=== PATIENT | male | born 1960 | race Caucasian/White ===

== ENCOUNTER → 2018-08-06 | Outpatient (CLI) | payer MEDICARE, MEDICAID | LOC: WOUNDCARE 13:54 | PROVIDERS: ATTEND Surgery | DX: L89.312 Pressure ulcer of right buttock, stage 2 (principal); L22 Diaper dermatitis; N39.42 Incontinence without sensory awareness; G82.50 Quadriplegia, unspecified; G80.9 Cerebral palsy, unspecified | CPT/HCPCS: 99202 ==

== ENCOUNTER → 2018-08-20 | Outpatient (CLI) | payer MEDICARE, MEDICAID | LOC: WOUNDCARE 11:02 | PROVIDERS: ATTEND Surgery | DX: L89.312 Pressure ulcer of right buttock, stage 2 (principal); G82.50 Quadriplegia, unspecified; G80.9 Cerebral palsy, unspecified; L22 Diaper dermatitis; N39.42 Incontinence without sensory awareness | CPT/HCPCS: 99212 ==

== ENCOUNTER → 2018-09-03 | Outpatient (CLI) | payer MEDICARE, MEDICAID | LOC: WOUNDCARE 10:35 | PROVIDERS: ATTEND Surgery | DX: L89.312 Pressure ulcer of right buttock, stage 2 (principal); L22 Diaper dermatitis; N39.42 Incontinence without sensory awareness; G82.50 Quadriplegia, unspecified; G80.9 Cerebral palsy, unspecified | CPT/HCPCS: 99212 ==

== ENCOUNTER → 2018-10-01 | Outpatient (CLI) | payer MEDICARE, MEDICAID | LOC: WOUNDCARE 10:46 | PROVIDERS: ATTEND Surgery | DX: L89.312 Pressure ulcer of right buttock, stage 2 (principal); L22 Diaper dermatitis; N39.42 Incontinence without sensory awareness; G80.9 Cerebral palsy, unspecified | CPT/HCPCS: 99212 ==

== ENCOUNTER 2018-11-17 21:07 | Inpatient (IN) | payer MEDICAID, MEDICARE ==
[~2018-11-17] VITALS: Ht 172.7 cm; Wt 57.6 kg
[2018-11-17] MEDS ORDERED: LACTATED RINGERS 1,000 ML IV ONE ×2 (21:13)
[2018-11-17] MEDS ORDERED: AZITHROMYCIN INJECTION 500 MG in NS (IVPB) 250 ML IV ONE (21:15)
[2018-11-17] MEDS ORDERED: cefTRIAXone FOR IV USE 1,000 MG in WATER (STERILE) FOR INJECTION 10 ML IV ONE (21:15)
--- OUTSIDE RECORDS SUMMARY | 2018-11-17 21:19 | XMS REPORT | Continuity of Care Document ---
Author Author [facility] Organization [facility] Address [address] [place] [address] Phone Unavailable Care Team Providers Care Rolling Machine Operator Automatic Name Role Phone ANITA CLARK MD PCP Insurance Providers Guarantor Tyler Carlin Address [address] [place] [address] Payer Medicare Policy Number [id number] Subscriber's Name GermanTyler Relationship 18 Self/Same As Patient Group Name MEDICARE Effective Date 12 Payer Medicaid [place] [address] Policy Number [id number] Subscriber's Name GermanTyler Relationship 18 Self/Same As Patient Group Number [id number] Advance Directives Directive Response Recorded Date/Time Advance Directives No 11/09/16 8:53am Living Will No 08/27/11 7:58pm Power of Shop Repairer for Healthcare Arin - IFEANYI MAYS-SISTER 12/14/12 8:03am Chief Complaint and Reason for Visit Chief Complaint Abdominal Complaints Reason for Visit Emesis Problems Medical Problem Onset Date Status Choking episode Unknown Acute Transient left leg weakness Unknown Acute Upper respiratory infection Unknown Acute Past Problems Medical Problem Onset Date Status Emesis Unknown Acute Medications Current Home Medications Medication Dose Units Route Directions Days Qty Instructions Start Date Amoxicillin 875 Mg Tablet 875 Mg Oral Two (2) Times A Day 20 Tablets 03/31/17 Aspirin 81 Mg Tab.chew 81 Mg Oral Daily 30 Tab 01/30/17 Atorvastatin Calcium 20 Mg Tablet 20 Mg Oral Daily 30 Tab 10/04/16 Docusate Sodium 100 Mg Tablet 100 Mg Oral Two (2) Times A Day 60 Tab 01/30/17 Fluticasone Propionate 50 Mcg/Actuation [place].susp 50 Mcg Nasal Two (2) Times A Day 16 Gram 03/31/17 Guaifenesin/Dextromethorphan (Mucinex Dm Er 1,200-60 Mg Tab) 1,200 Mg-60 Mg Tbmp.12hr 1 Tab Oral Every Twelve (12) Hours 20 Tab 03/31/17 Ranitidine Hcl 150 Mg Tablet 150 Mg Oral Two (2) Times A Day 60 Tab 10/04/16 Starch (Thick-It) 227 Gm Powder 1 Scoop Oral As Directed 1 Bottle Use as directed by package insert to thicken liquids. 03/14/17 Trazodone Hcl 100 Mg Tablet 100 Mg Oral Bedtime 30 Tab 10/04/16 Past Home Medications Medication Directions Ordered Status Aspirin 81 Mg Tab.chew, 81 Mg Oral Daily 10/31/16 Discontinued Aspirin (Aspirin*) 81 Mg Chw, 81 Mg Oral Daily Discontinued Atorvastatin Calcium (Atorvastatin Calcium*) 20 Mg Tab, 20 Mg Oral Daily 10/31 Discontinued Atorvastatin Calcium (Atorvastatin Calcium*) 20 Mg Tab, 20 Mg Oral Daily Discontinued Azithromycin (Zithromax) 250 Mg Tab, 250 Mg Oral As Directed 03/23/16 Discontinued Docusate Sodium 100 Mg Tablet, 100 Mg Oral Two (2) Times A Day 10/31/16 Discontinued Docusate Sodium 100 Mg Tablet, 100 Mg Oral Two (2) Times A Day 10/04/16 Discontinued Docusate Sodium (Docusate Sodium*) 100 Mg Cap, 100 Mg Oral Two (2) Times A Day Discontinued Lorazepam (Lorazepam*) 1 Mg Tab, 1 Mg Oral Now Dose X 1 07/05/16 Discontinued Neomycin Olsen/Bacitrac Zn/Poly (Triple Antibiotic Ointment) 1 Oin Oin, 1 Oin External 1 To 3 Times A Day as needed for As Needed Discontinued Ranitidine Hcl (Ranitidine Hcl*) 150 Mg Tab, 150 Mg Oral Two (2) Times A Day Discontinued Ranitidine Hcl 150 Mg Tab, 150 Mg Oral Daily Discontinued Starch (Thick-It) 227 Gm Powder, 1 Scoop Oral As Directed 02/07/17 Discontinued Trazodone Hcl (Desyrel*) 100 Mg Tab, 100 Mg Oral Bedtime 08/17/16 Discontinued Trazodone Hcl (Desyrel*) 100 Mg Tab, 100 Mg Oral Bedtime Discontinued Zolpidem Tartrate 10 Mg Tab, 10 Mg Oral Bedtime Discontinued Social History Social History Problem Response Recorded Date/Time Onset Date Status Alcohol use None 03/31/2017 10:54am Not Applicable Not Applicable Recreational drug use None 03/31/2017 10:54am Not Applicable Not Applicable Lives Roommate 11/09/2016 7:49am Not Applicable Not Applicable Smoking Status Start Date Stop Date Never Smoker Hospital Discharge Instructions No hospital discharge instruction information available. Plan of Care Discharge Date 11/09/16 9:11am Disposition Home Condition at Discharge Stable Instructions/Education Provided Acute Nausea and Vomiting (ED) Prescriptions See Medication Section Referrals ANITA CLARK MD Address: [address] [place] [address] Additional Instructions/Education Patient may increase fluid intake, followup with his primary care physician or return to emergency department if he continue vomiting after 2 days. Functional Status No functional status information available. Allergies, Adverse Reactions, Alerts Allergen Type Severity Reaction Status Last Updated tetracycline ([id number]) Allergy Unknown Active 03/31/17 Immunizations Query Response on File Recorded Date/Time Hx Pneumococcal Vaccination Unknown 12/14/12 8:03am Vital Signs Acute Vital Signs Vital Response Date/Time Blood Pressure 105/84 mm Hg 11/09/2016 8:49am Height 5 ft 8 in 11/09/2016 7:48am Weight 150 lb 11/09/2016 7:48am Body Mass Index 22.8 kg/m^2 11/09/2016 7:48am Ambulatory Vital Signs Vital Response Date/Time Height 6 ft 03/31/2017 9:35am Weight 190 lbs 03/31/2017 9:35am Temperature, Temporal 97.1 degrees F 03/31/2017 9:35am Blood Pressure, Sitting, Right Arm 98/70 mm Hg 03/31/2017 9:35am Pulse Rate 81 bpm 03/31/2017 9:35am Respiration Rate 16 bpm 03/31/2017 9:35am Body Surface Area 2.10 m2 03/31/2017 9:35am Body Mass Index 25.8 kg/m2 03/31/2017 9:35am Pulse Oximetry Pulse Oximetry 03/31/2017 9:35am Results Laboratory Results Test Name Result Units Flags Reference Collection Date/Time Result Date/ Time Comments Total Cholesterol 90 mg/dL < 200 10/20/2016 8:10/20/2016 9:19am Triglycerides Level 87 mg/dL <150 10/20/2016 8:10/20/2016 9:19am HDL Cholesterol 27 mg/dL L >60 10/20/2016 8:10/20/2016 9:19am LDL Cholesterol 46 mg/dL <100 10/20/2016 8:10/20/2016 9:19am Very Low Density Lipoproteins 17.4 10/20/2016 8:10/20/2016 9: 19am Thyroid Stimulating Hormone (TSH) 2.11 uUI/ml 0.35-4.94 10/20/2016 8: 10/20/2016 9:30am White Blood Count 11.9 K/uL H 4.4-10.8 11/09/2016 8:11/09/2016 8: 14am Red Blood Count 5.58 mil/uL 4.0-6.2 11/09/2016 8:11/09/2016 8: 14am Hemoglobin 16.0 g/dL 11.8-18.0 11/09/2016 8:11/09/2016 8:14am Hematocrit 49.1 % 34.0-54.0 11/09/2016 8:11/09/2016 8:14am Mean Corpuscular Volume 88.0 fL 83.2-94.4 11/09/2016 8:11/09/2016 8:14am Mean Corpuscular Hemoglobin 28.7 pg 26.2-30.6 11/09/2016 8:2016 8:14am Mean Corpuscular Hemoglobin Concent 32.6 g/dL 29.6-33.2 11/09/2016 8: 11/09/2016 8:14am Red Cell Distribution Width 13.2 % 11.6-16.5 11/09/2016 8:2016 8:14am Platelet Count 180 K/ul 150-450 11/09/2016 8:11/09/2016 8:14am Mean Platelet Volume 10.4 fL 6.9-11.0 11/09/2016 8:0811/09/2016 8: 14am Neutrophils (%) (Auto) 84.6 % H 37.00-80.00 11/09/2016 8:082016 8:14am Lymphocytes (%) (Auto) 9.3 % L 10.00-50.00 11/09/2016 8:0811/09/2016 8:14am Monocytes (%) (Auto) 4.6 % 0.0-12.00 11/09/2016 8:0811/09/2016 8: 14am Eosinophils (%) (Auto) 0.7 % 0.0-7.00 11/09/2016 8:0811/09/2016 8: 14am Basophils (%) (Auto) 0.5 % 0.0-1.7 11/09/2016 8:0811/09/2016 8:14am Neutrophils # (Auto) 10.0 K/uL H 2.0-6.9 11/09/2016 8:0811/09/2016 8: 14am Lymphocytes # (Auto) 1.1 K/uL 0.6-3.4 11/09/2016 8:08am 11/09/2016 8: 14am Monocytes # (Auto) 0.6 K/uL 0.0-0.9 11/09/2016 8:0811/09/2016 8: 14am Eosinophils # (Auto) 0.1 K/uL 0.0-0.7 11/09/2016 8:0811/09/2016 8: 14am Basophils # (Auto) 0.1 K/uL 0.0-0.2 11/09/2016 8:0811/09/2016 8: 14am Sodium Level 143 mEq/L 135-145 11/09/2016 8:0811/09/2016 8:31am Potassium Level 4.1 mEq/L 3.5-5.1 11/09/2016 8:0811/09/2016 8:31am Chloride Level 108 mEq/L 98-113 11/09/2016 8:0811/09/2016 8:31am Carbon Dioxide Level 26 mEq/L 20-31 11/09/2016 8:0811/09/2016 8: 31am Anion Gap 9 mEq/L 7-16 11/09/2016 8:0811/09/2016 8:31am Blood Urea Nitrogen 17 mg/dL 8.0-26.0 11/09/2016 8:08am 11/09/2016 8: 31am Random Glucose 101 mg/dL 70-115 11/09/2016 8:08am 11/09/2016 8:31am Creatinine 1.1 mg/dl 0.72-1.25 11/09/2016 8:08am 11/09/2016 8:31am Estimated GFR (Non- > 60 11/09/2016 8:08am 2016 8:31am NORMAL eGFR: >=60 ml/min/1.73 m2 KIDNEY DISEASE: < 60 ml/min/1.73 m2 KIDNEY FAILURE: < 15 ml/min/1.73 m2 SOURCE: NKDEP (National Kidney Disease Education Program).NIH.GOV Calcium Level 9.4 mg/dL 8.6-10.6 11/09/2016 8:08am 11/09/2016 8:31am Aspartate Amino Transf (AST/SGOT) 26 IU/L 5-34 11/09/2016 8:08am 2016 8:31am Alanine Aminotransferase (ALT/SGPT) 21 IU/L 6-55 11/09/2016 8:08am 8:31am Alkaline Phosphatase 89 IU/L 40-150 11/09/2016 8:08am 11/09/2016 8: 31am Total Bilirubin 0.6 mg/dL 0.2-1.2 11/09/2016 8:08am 11/09/2016 8:31am Total Protein 7.2 gm/dL 6.0-8.3 11/09/2016 8:08am 11/09/2016 8:31am Albumin 4.3 gm/dL 3.4-4.8 11/09/2016 8:08am 11/09/2016 8:31am Lipase 25 U/L 8-78 11/09/2016 8:08am 11/09/2016 8:31am Procedures Procedure Status Date Provider(s) EMERGENCY DEPT VISIT Completed 04/26/16 CT HEAD/BRAIN W/O DYE Completed 04/26/16 COMPLETE CBC W/AUTO DIFF WBC Completed 04/26/16 ROUTINE VENIPUNCTURE Completed 04/26/16 COMPREHEN METABOLIC PANEL Completed 04/26/16 CINE/VID X-RAY THROAT/ESOPH Completed 05/24/16 MOTION FLUOROSCOPY/SWALLOW Completed 05/24/16 Completed 05/24/16 Completed 05/24/16 Completed 05/24/16 COMPLETE CBC W/AUTO DIFF WBC Completed 10/20/16 ROUTINE VENIPUNCTURE Completed 10/20/16 LIPID PANEL Completed 10/20/16 ASSAY THYROID STIM HORMONE Completed 10/20/16 COMPREHEN METABOLIC PANEL Completed 10/20/16 EMERGENCY DEPT VISIT Completed 11/09/16 ASSAY OF LIPASE Completed 11/09/16 COMPLETE CBC W/AUTO DIFF WBC Completed 11/09/16 ROUTINE VENIPUNCTURE Completed 11/09/16 COMPREHEN METABOLIC PANEL Completed 11/09/16 CT Head WO contrast Active 04/26/16 RAY FLEMING Modified barium swallow Active 05/24/16 WAQAS HOOD APRN Technologists Notes Completed 05/24/16 WAQAS HOOD APRN Swallow Goal 1 - <20% Completed 05/24/16 WAQAS HOOD APRN Swallow Current 20 - <40% Completed 05/24/16 WAQAS HOOD APRN Swallow Discharge 20 - <40% Completed 05/24/16 WAQAS HOOD APRN Encounters Encounter Location Arrival/Admit Date Discharge/Depart Date Attending Provider Office Visit [facility] [address] [facility] [place] 03/31/17 9:45am ANITA CLARK MD Registered Practice [facility] 03/31/17 9:45am ANITA CLARK MD Office Visit [facility] [address] [place] 02/09/17 8:00am BROOKE DUMONT APRN Departed Emergency Room [facility] 11/09/16 7:45am 11/09/16 9: 11am RAY FLEMING Registered Referred [facility] 10/20/16 7:56am BROOKE DUMONT PROCESSING MGR Office Visit [facility] [address] [place] 10/04/16 9:00am BROOKE DUMONT APRN Registered Referred [facility] 05/24/16 9:16am WAQAS HOOD APRN Office Visit Family [facility] [address] - [place] 05/05/16 9:45am WAQAS HOOD APRN Departed Emergency Room [facility] 04/26/16 10:49am 04/26/16 12:57pm SHAFEI, MOHEDINE Recent Diagnosis Congestion of respiratory tract Acute streptococcal pharyngitis
--- OUTSIDE RECORDS SUMMARY | 2018-11-17 21:19 | XMS REPORT | Continuity of Care Document ---
Author Author [facility] Organization [facility] Address [address] [place] [address] Phone Unavailable Care Team Providers Care Acute Coordinator Name Role Phone ANITA CLARK MD PCP Insurance Providers Guarantor Tyler Carlin Address [address] [place] [address] Payer Medicare Policy Number [id number] Subscriber's Name Tyler Carlin Relationship 18 Self/Same As Patient Group Name MEDICARE Effective Date 12 Payer Medicaid [place] [id number] Policy Number [id number] Subscriber's Name Tyler Carlin Relationship 18 Self/Same As Patient Group Number [id number] Advance Directives Directive Response Recorded Date/Time Advance Directives No 11/09/16 8:53am Living Will No 08/27/11 7:58pm Power of Patient Admitting Clerk for Healthcare Arin - IFEANYI MAYS-SISTER 12/14/12 [...] Route Directions Days Qty Instructions Start Date Aspirin 81 Mg Tab.chew 81 Mg Oral Daily 30 Tab 10/31/16 Atorvastatin Calcium 20 Mg Tablet 20 Mg Oral Daily 30 Tab 10/04/16 Docusate Sodium 100 Mg Tablet 100 Mg Oral Two (2) Times A Day 60 Tab 10/31/16 Ranitidine Hcl 150 Mg Tablet 150 Mg Oral Two (2) Times A Day 60 Tab 10/04/16 Trazodone Hcl 100 Mg Tablet 100 Mg Oral Bedtime 30 Tab 10/04/16 Past Home Medications Medication Directions Ordered Status Aspirin (Aspirin*) 81 Mg Chw, 81 Mg [...] Mg Tab, 150 Mg Oral Daily Discontinued Trazodone Hcl (Desyrel*) 100 Mg Tab, 100 Mg Oral Bedtime 08/17/16 Discontinued Trazodone Hcl (Desyrel*) 100 Mg Tab, 100 Mg Oral Bedtime Discontinued Zolpidem Tartrate 10 Mg Tab, 10 Mg Oral Bedtime Discontinued Social History Social History Problem Response Recorded Date/Time Onset Date Status Alcohol use None 11/09/2016 7:49am Not Applicable Not Applicable Recreational drug use None 11/09/2016 7:49am Not Applicable Not Applicable Lives Roommate 11/09/2016 7:49am Not Applicable Not Applicable Smoking Status Start Date Stop Date Never Smoker Hospital Discharge Instructions No hospital discharge instruction information available. Plan of Care Discharge Date 11/09/16 9:11am Disposition Home Condition at Discharge Stable Instructions/Education Provided Acute Nausea and Vomiting (ED) Prescriptions See Medication Section Referrals ANITA CLARK MD Address: [address] [place] [phone] Additional Instructions/Education Patient may increase fluid intake, followup with his primary care physician or return to emergency department if he continue vomiting after 2 days. Functional Status No functional status information available. Allergies, Adverse Reactions, Alerts Allergen Type Severity Reaction Status Last Updated tetracycline ([id number]) Allergy Unknown Active 11/09/16 Immunizations Query Response on File Recorded Date/Time Hx Pneumococcal Vaccination Unknown 12/14/12 8:03am Vital Signs Acute Vital Signs Vital Response Date/Time Blood Pressure 105/84 mm Hg 11/09/2016 8:49am Height 5 ft 8 in 11/09/2016 7:48am Weight 150 lb 11/09/2016 7:48am Body Mass Index 22.8 kg/m^2 11/09/2016 7:48am Ambulatory Vital Signs Vital Response Date/Time Temperature, Temporal 97.6 degrees F 10/04/2016 9:28am Blood Pressure, Sitting, Right Arm 128/82 mm Hg 10/04/2016 9:28am Pulse Rate 84 bpm 10/04/2016 9:28am Respiration Rate 16 bpm 10/04/2016 9:28am Pulse Oximetry Pulse Oximetry 10/04/2016 9:28am Results Laboratory Results Test Name Result Units Flags Reference Collection Date/Time Result Date/ Time Comments Total Cholesterol 90 mg/dL < 200 10/20/2016 8:10am 10/20/2016 9:19am Triglycerides Level 87 mg/dL <150 10/20/2016 8:10a10/20/2016 9:19am HDL Cholesterol 27 mg/dL L >60 10/20/2016 8:10a10/20/2016 9:19am LDL Cholesterol 46 mg/dL <100 10/20/2016 8:10a10/20/2016 9:19am Very Low Density Lipoproteins 17.4 10/20/2016 8:10a10/20/2016 9: 19am Thyroid Stimulating Hormone (TSH) 2.11 uUI/ml 0.35-4.94 10/20/2016 8: 10a10/20/2016 9:30am White Blood Count 11.9 K/uL H 4.4-10.8 11/09/2016 8:08am 11/09/2016 8: 14am Red Blood Count 5.58 mil/uL 4.0-6.2 11/09/2016 8:08am 11/09/2016 8: 14am Hemoglobin 16.0 g/dL 11.8-18.0 11/09/2016 8:08am 11/09/2016 8:14am Hematocrit 49.1 % 34.0-54.0 11/09/2016 8:08am 11/09/2016 8:14am Mean Corpuscular Volume 88.0 fL 83.2-94.4 11/09/2016 8:0811/09/2016 8:14am Mean Corpuscular Hemoglobin 28.7 pg 26.2-30.6 11/09/2016 8:082016 8:14am Mean Corpuscular Hemoglobin Concent 32.6 g/dL 29.6-33.2 11/09/2016 8: 0811/09/2016 8:14am Red Cell Distribution Width 13.2 % 11.6-16.5 11/09/2016 8:082016 8:14am Platelet Count 180 K/ul 150-450 11/09/2016 8:0811/09/2016 8:14am Mean Platelet Volume 10.4 fL 6.9-11.0 11/09/2016 8:08am 11/09/2016 8: 14am Neutrophils (%) (Auto) 84.6 % H 37.00-80.00 11/09/2016 8:08am 2016 8:14am Lymphocytes (%) (Auto) 9.3 % L 10.00-50.00 11/09/2016 8:08am 11/09/2016 8:14am Monocytes (%) (Auto) 4.6 % 0.0-12.00 11/09/2016 8:0811/09/2016 8: 14am Eosinophils (%) (Auto) 0.7 % 0.0-7.00 11/09/2016 8:08am 11/09/2016 8: 14am Basophils (%) (Auto) 0.5 % 0.0-1.7 11/09/2016 8:08am 11/09/2016 8:14am Neutrophils # (Auto) 10.0 K/uL H 2.0-6.9 11/09/2016 8:08am 11/09/2016 8: 14am Lymphocytes # (Auto) 1.1 K/uL 0.6-3.4 11/09/2016 8:08am 11/09/2016 8: 14am Monocytes # (Auto) 0.6 K/uL 0.0-0.9 11/09/2016 8:08am 11/09/2016 8: 14am Eosinophils # (Auto) 0.1 K/uL 0.0-0.7 11/09/2016 8:08am 11/09/2016 8: 14am Basophils # (Auto) 0.1 K/uL 0.0-0.2 11/09/2016 8:08am 11/09/2016 8: 14am Sodium Level 143 mEq/L 135-145 11/09/2016 8:08am 11/09/2016 8:31am Potassium Level 4.1 mEq/L 3.5-5.1 11/09/2016 8:08am 11/09/2016 8:31am Chloride Level 108 mEq/L 98-113 11/09/2016 8:08am 11/09/2016 8:31am Carbon Dioxide Level 26 mEq/L 20-31 11/09/2016 8:08am 11/09/2016 8: 31am Anion Gap 9 mEq/L 7-16 11/09/2016 8:08am 11/09/2016 8:31am Blood Urea Nitrogen 17 mg/dL 8.0-26.0 11/09/2016 8:08am 11/09/2016 8: 31am Random Glucose 101 mg/dL 70-115 11/09/2016 8:08am 11/09/2016 8:31am Creatinine 1.1 mg/dl 0.72-1.25 11/09/2016 8:08am 11/09/2016 8:31am Estimated GFR (Non- > 60 11/09/2016 8:082016 8:31am NORMAL eGFR: >=60 ml/min/1.73 m2 KIDNEY [...] Status Date Provider(s) EMERGENCY DEPT VISIT Completed 11/30/15 CHEST X-RAY 1 VIEW FRONTAL Completed 11/30/15 AIRWAY INHALATION TREATMENT Completed 11/30/15 EVALUATE PT USE OF INHALER Completed 11/30/15 Completed 11/30/15 EMERGENCY DEPT VISIT Completed 03/23/16 COMPLETE CBC W/AUTO DIFF WBC Completed 03/23/16 ROUTINE VENIPUNCTURE Completed 03/23/16 COMPREHEN METABOLIC PANEL Completed 03/23/16 INFLUENZA A/B AG IA Completed 03/23/16 EMERGENCY DEPT VISIT Completed 04/26/16 CT HEAD/BRAIN [...] Completed 10/20/16 COMPREHEN METABOLIC PANEL Completed 10/20/16 Initial aerosol treatment Active 11/30/15 JOHN ISLAS MD XR portable chest, 1 view Active 11/30/15 JOHN ISLAS MD Aerosol Tx Demo And Eval Completed 11/30/[address] head wo contrast Active 04/26/16 RAY FLEMING Modified barium swallow Active 05/24/16 WAQAS HOOD APRN Technologists Notes Completed 05/24/16 WAQAS HOOD APRN Swallow Goal 1 - <20% Completed 05/24/16 WAQAS HOOD APRN Swallow Current 20 - <40% Completed 05/24/16 WAQAS HOOD APRN Swallow Discharge 20 - <40% Completed 05/24/16 WAQAS HOOD APRN Encounters Encounter Location Arrival/Admit Date Discharge/Depart Date Attending Provider Departed Emergency Room [facility] 11/09/16 7:45am 11/09/16 9: 11am RAY FLEMING Registered Referred [facility] 10/20/16 7:56am BROOKE DUMONT APRN Office Visit Family [facility] [address] [place] 10/04/16 9:00am BROOKE DUMONT APRN Registered Practice [facility] 10/04/16 9:00am BROOKE DUMONT APRN Registered Referred [facility] 05/24/16 9:16am WAQAS HOOD APRN Office Visit [facility] [address] - [place] 05/05/16 9:45am WAQAS HOOD APRN Departed Emergency Room [facility] 04/26/16 10:49am 04/26/16 12:57pm RAY FLEMING Departed Emergency Room [facility] 03/23/16 11:12am 03/23/16 12:51pm RAY FLEMING Departed Emergency Room [facility] 11/30/15 11:29am 11/30/15 2 :10pm JOHN ISLAS MD Recent Diagnosis
--- OUTSIDE RECORDS SUMMARY | 2018-11-17 21:19 | XMS REPORT | Continuity of Care Document ---
Author Author [facility] Organization [facility] Address [address] [place] [id number] Phone Unavailable Care Team Providers Care Studio Camera Operator Name Role Phone ANITA CLARK MD PCP Insurance Providers Guarantor Tyler Carlin Address [address] [place] [address] Payer Medicare Policy Number [id number] Subscriber's Name GermanTyler Relationship 18 Self/Same As Patient Group Name MEDICARE Effective Date 12 Payer Medicaid [place] [address] Policy Number [id number] Subscriber's Name GermanLionelTyler Relationship 18 Self/Same As Patient Group Number [id number] Advance Directives Directive Response Recorded Date/Time Advance Directives No 11/09/16 8:53am Living Will No 08/27/11 7:58pm Power of Assistant Director Of Nursing for Healthcare Arin - IFEANYI MAYS-SISTER 12/14/12 [...] (2) Times A Day 60 Tab 01/30/17 Ranitidine Hcl 150 Mg Tablet 150 Mg Oral Two (2) Times A Day 60 Tab 10/04/16 Starch (Thick-It) 227 Gm Powder 1 Scoop Oral As Directed 1 Bottle Use as directed by package insert to thicken liquids. 02/07/17 Trazodone Hcl 100 Mg Tablet 100 Mg [...] Date/Time Onset Date Status Alcohol use None 02/10/2017 7:58am Not Applicable Not Applicable Recreational drug use None 02/10/2017 7:58am Not Applicable Not Applicable Lives Roommate 11/09/2016 7:49am Not Applicable Not Applicable Smoking Status Start Date Stop Date Never Smoker Hospital Discharge Instructions No hospital discharge instruction information available. Plan of Care Discharge Date 11/09/16 9:11am Disposition Home Condition at Discharge Stable Instructions/Education Provided Acute Nausea and Vomiting (ED) Prescriptions See Medication Section Referrals ANITA CLARK MD Address: [address] [place] [id number] Additional Instructions/Education Patient may increase fluid intake, followup with his primary care physician or return to emergency department if he continue vomiting after 2 days. Functional Status No functional status information available. Allergies, Adverse Reactions, Alerts Allergen Type Severity Reaction Status Last Updated tetracycline ([id number]) Allergy Unknown Active 02/09/17 Immunizations Query Response on File Recorded Date/Time Hx Pneumococcal Vaccination Unknown 12/14/12 8:03am Vital Signs Acute Vital Signs Vital Response Date/Time Blood Pressure 105/84 mm Hg 11/09/2016 8:49am Height 5 ft 8 in 11/09/2016 7:48am Weight 150 lb 11/09/2016 7:48am Body Mass Index 22.8 kg/m^2 11/09/2016 7:48am Ambulatory Vital Signs Vital Response Date/Time Weight 159 lbs 2 oz 02/09/2017 8:38am Temperature, Temporal 97.6 degrees F 02/09/2017 8:38am Blood Pressure, Sitting, Left Arm 98/62 mm Hg 02/09/2017 8:38am Pulse Rate 80 bpm 02/09/2017 8:38am Pulse Oximetry Pulse Oximetry 02/09/2017 8:38am Results Laboratory Results Test Name Result Units Flags Reference Collection Date/Time Result Date/ Time Comments Total Cholesterol 90 mg/dL < 200 10/20/2016 8:10am 10/20/2016 9:19am Triglycerides Level 87 mg/dL <150 10/20/2016 8:10am 10/20/2016 9:19am HDL Cholesterol 27 mg/dL L >60 10/20/2016 8:10am 10/20/2016 9:19am LDL Cholesterol 46 mg/dL <100 10/20/2016 8:10am 10/20/2016 9:19am Very Low Density Lipoproteins 17.4 10/20/2016 8:10am 10/20/2016 9: 19am Thyroid Stimulating Hormone (TSH) 2.11 uUI/ml 0.35-4.94 10/20/2016 8: 10am 10/20/2016 9:30am White Blood Count 11.9 K/uL H 4.4-10.8 11/09/2016 8:0811/09/2016 8: 14am Red Blood Count 5.58 mil/uL 4.0-6.2 11/09/2016 8:11/09/2016 8: 14am Hemoglobin 16.0 g/dL 11.8-18.0 11/09/2016 8:0811/09/2016 8:14am Hematocrit 49.1 % 34.0-54.0 11/09/2016 8:11/09/2016 8:14am Mean Corpuscular Volume 88.0 fL 83.2-94.4 11/09/2016 8:0811/09/2016 8:14am Mean Corpuscular Hemoglobin 28.7 pg 26.2-30.6 11/09/2016 8:082016 8:14am Mean Corpuscular Hemoglobin Concent 32.6 g/dL 29.6-33.2 11/09/2016 8: 11/09/2016 8:14am Red Cell Distribution Width 13.2 % 11.6-16.5 11/09/2016 8:2016 8:14am Platelet Count 180 K/ul 150-450 11/09/2016 8:11/09/2016 8:14am Mean Platelet Volume 10.4 fL 6.9-11.0 11/09/2016 8:11/09/2016 8: 14am Neutrophils (%) (Auto) 84.6 % H 37.00-80.00 11/09/2016 8:2016 8:14am Lymphocytes (%) (Auto) 9.3 % L 10.00-50.00 11/09/2016 8:11/09/2016 8:14am Monocytes (%) (Auto) 4.6 % 0.0-12.00 11/09/2016 8:11/09/2016 8: 14am Eosinophils (%) (Auto) 0.7 % 0.0-7.00 11/09/2016 8:11/09/2016 8: 14am Basophils (%) (Auto) 0.5 % 0.0-1.7 11/09/2016 8:11/09/2016 8:14am Neutrophils # (Auto) 10.0 K/uL H [...] Status Date Provider(s) EMERGENCY DEPT VISIT Completed 03/23/16 COMPLETE CBC [...] - Short 02/09/17 8:00am BROOKE DUMONT APRN Registered Practice [facility] 02/09/17 8:00am BROOKE DUMONT APRN Departed Emergency Room [facility] 11/09/16 7:45am 11/09/16 9: 11am RAY FLEMING Registered Referred [facility] 10/20/16 7:56am BROOKE DUMONT APRN Office Visit Family [facility] [address] - [place] 10/04/16 9:00am BROOKE DUMONT APRN Registered Referred [facility] 05/24/16 9:16am WAQAS HOOD APRN Office Visit Family Med [address] - [place] 05/05/16 9:45am WAQAS HOOD APRN Departed Emergency Room [facility] 04/26/16 10:49am 04/26/16 12:57pm RAY FLEMING Departed Emergency Room [facility] 03/23/16 11:12am 03/23/16 12:51pm RAY FLEMING Recent Diagnosis Well adult exam
--- OUTSIDE RECORDS SUMMARY | 2018-11-17 21:20 | XMS REPORT | Continuity of Care Document ---
Author Author [facility] Organization [facility] Address [address] [place] [address] Care Team Providers Care Fishing Tool Technician Oil Well Name Role Phone BROOKE DUMONT APRN PCP Insurance Providers Guarantor Tyler Porter Address [address] [place] [address] Payer Medicare Policy Number [id number] Subscriber's Name Tyler Porter Relationship 18 Self/Same As Patient Group Name MEDICARE Effective Date 12 Payer Medicaid [place] [address] Policy Number [id number] Subscriber's Name Tyler Porter Relationship 18 Self/Same As Patient Group Number [id number] Advance Directives Directive Response Recorded Date/Time Advance Directives No 11/09/16 8:53am Living Will No 08/27/11 7:58pm Power of Motor Vehicle Assembly Supervisor for Healthcare Arin - IFEANYI MAYS-SISTER 12/14/12 8:03am Chief Complaint and Reason for Visit Chief Complaint Fall Reason for Visit Recurrent falls Fall Problems Medical Problem Onset Date Status Abrasion head Unknown Acute Choking episode Unknown Acute Decubitus ulcer of left foot, stage 2 Unknown Chronic Head injury due to trauma Unknown Acute Pressure ulcer of toe of left foot, stage 1 Unknown Acute Transient left leg weakness Unknown Acute Ulcer of toe of left foot Unknown Upper respiratory infection Unknown Acute Past Problems Medical Problem Onset Date Status Emesis Unknown Acute Fall Unknown Acute Recurrent falls Unknown Acute Medications Current Home Medications Medication Dose Units Route Directions Days Qty Instructions Start Date Aspirin 81 Mg Tab.chew 81 Mg Oral Daily 30 Tab 08/02/17 Atorvastatin Calcium 20 Mg Tablet 20 Mg Oral Daily 30 Tab 09/01/17 Docusate Sodium 100 Mg Tablet 100 Mg Oral Two (2) Times A Day 60 Tab 07/31/17 Ranitidine Hcl 150 Mg Tablet 150 Mg Oral Two (2) Times A Day 60 Tab 09/01/17 Starch (Thick-It) 227 Gm Powder 1 Scoop Oral As Directed 1 Bottle Use as directed by package insert to thicken liquids. 09/28/17 Trazodone Hcl 100 Mg Tablet 100 Mg Oral Bedtime 30 Tab 09/01/17 Past Home Medications Medication Directions Ordered Status Amoxicillin 875 Mg Tablet, 875 Mg Oral Two (2) Times A Day 03/31/17 Discontinued Aspirin 81 Mg Tab.chew, 81 Mg Oral Daily 08/01/17 Discontinued Aspirin 81 Mg Tab.chew, 81 Mg Oral Daily 05/01/17 Discontinued Aspirin 81 Mg Tab.chew, 81 Mg Oral Daily 01/30/17 Discontinued Aspirin 81 Mg Tab.chew, 81 Mg Oral Daily 10/31/16 Discontinued Aspirin (Aspirin*) 81 Mg Chw, 81 Mg Oral Daily Discontinued Atorvastatin Calcium 20 Mg Tablet, 20 Mg Oral Daily 10/04/16 Discontinued Atorvastatin Calcium (Atorvastatin Calcium*) 20 Mg Tab, 20 Mg Oral Daily 10/31 Discontinued Atorvastatin Calcium (Atorvastatin Calcium*) 20 Mg Tab, 20 Mg Oral Daily Discontinued Azithromycin (Zithromax) 250 Mg Tab, 250 Mg Oral As Directed 03/23/16 Discontinued Docusate Sodium 100 Mg Tablet, 100 Mg Oral Two (2) Times A Day 05/01/17 Discontinued Docusate Sodium 100 Mg Tablet, 100 Mg Oral Two (2) Times A Day 01/30/17 Discontinued Docusate Sodium 100 Mg Tablet, 100 Mg Oral Two (2) Times A Day 10/31/16 Discontinued Docusate Sodium 100 Mg Tablet, 100 Mg Oral Two (2) Times A Day 10/04/16 Discontinued Docusate Sodium (Docusate Sodium*) 100 Mg Cap, 100 Mg Oral Two (2) Times A Day Discontinued Fluticasone Propionate 50 Mcg/Actuation [place].susp, 50 Mcg Nasal Two (2) Times A Day 03/31/17 Discontinued Guaifenesin/Dextromethorphan (Mucinex Dm Er 1,200-60 Mg Tab) 1,200 Mg-60 Mg Tbmp.12hr, 1 Tab Oral Every Twelve (12) Hours 03/31/17 Discontinued Lorazepam (Lorazepam*) 1 Mg Tab, 1 Mg Oral Now Dose X 1 07/05/16 Discontinued Neomycin Olsen/Bacitrac Zn/Poly (Triple Antibiotic Ointment) 1 Oin Oin, 1 Oin External 1 To 3 Times A Day as needed for As Needed Discontinued Ranitidine Hcl 150 Mg Tablet, 150 Mg Oral Two (2) Times A Day 10/04/16 Discontinued Ranitidine Hcl (Ranitidine Hcl*) 150 Mg Tab, 150 Mg Oral Two (2) Times A Day Discontinued Ranitidine Hcl 150 Mg Tab, 150 Mg Oral Daily Discontinued Starch (Thick-It) 227 Gm Powder, 1 Scoop Oral As Directed 09/01/17 Discontinued Starch (Thick-It) 227 Gm Powder, 1 Scoop Oral As Directed 04/19/17 Discontinued Starch (Thick-It) 227 Gm Powder, 1 Scoop Oral As Directed 03/14/17 Discontinued Starch (Thick-It) 227 Gm Powder, 1 Scoop Oral As Directed 02/07/17 Discontinued Trazodone Hcl 100 Mg Tablet, 100 Mg Oral Bedtime 10/04/16 Discontinued Trazodone Hcl (Desyrel*) 100 Mg Tab, 100 Mg Oral Bedtime 08/17/16 Discontinued Trazodone Hcl (Desyrel*) 100 Mg Tab, 100 Mg Oral Bedtime Discontinued Zolpidem Tartrate 10 Mg Tab, 10 Mg Oral Bedtime Discontinued Social History Social History Problem Response Recorded Date/Time Onset Date Status Alcohol use None 10/09/2017 3:47pm Not Applicable Not Applicable Recreational drug use None 10/09/2017 3:47pm Not Applicable Not Applicable Lives [facility] 10/09/2017 3:47pm Not Applicable Not Applicable Smoking Status Start Date Stop Date Never Smoker Hospital Discharge Instructions No hospital discharge instruction information available. Plan of Care Discharge Date 10/09/17 6:06pm Disposition Home Condition at Discharge Unchanged Instructions/Education Provided Fall Prevention for Older Adults (ED) Prescriptions See Medication Section Referrals BROOKE DUMONT APRN Address: [facility] [address] [address] Additional Instructions/Education Followup with his primary care physician if symptom worsen Functional Status No functional status information available. Allergies, Adverse Reactions, Alerts Allergen Type Severity Reaction Status Last Updated tetracycline ([id number]) Allergy Unknown Active 10/09/17 Immunizations Query Response on File Recorded Date/Time Hx Pneumococcal Vaccination Unknown 12/14/12 8:03am Vital Signs Acute Vital Signs Vital Response Date/Time Blood Pressure 109/68 mm Hg 10/09/2017 5:16pm Height 5 ft 9 in 10/09/2017 3:43pm Weight 155 lb 10/09/2017 3:43pm Body Mass Index 22.9 kg/m^2 10/09/2017 3:43pm Ambulatory Vital Signs Vital Response Date/Time Height 5 ft 11 in 08/07/2017 1:59pm Weight 189 lbs 9.530 oz 08/07/2017 1:59pm Temperature, Oral 98.3 degrees F 08/07/2017 1:59pm Blood Pressure, Sitting, Left Arm 98/62 mm Hg 08/07/2017 1:59pm Pulse Rate 89 bpm 08/07/2017 1:59pm Respiration Rate 16 bpm 08/07/2017 1:59pm Body Surface Area 2.09 m2 08/07/2017 1:59pm Body Mass Index 26.4 kg/m2 08/07/2017 1:59pm Pulse Oximetry Pulse Oximetry 08/07/2017 1:59pm Results Laboratory Results Test Name Result Units [...] Red Blood Count 5.58 mil/uL 4.0-6.2 11/09/2016 8:0811/09/2016 8: 14am Hemoglobin 16.0 g/dL 11.8-18.0 11/09/2016 8:0811/09/2016 8:14am Hematocrit 49.1 % 34.0-54.0 11/09/2016 8:08am 11/09/2016 8:14am Mean Corpuscular Volume 88.0 fL 83.2-94.4 11/09/2016 8:0811/09/2016 8:14am Mean Corpuscular Hemoglobin 28.7 pg 26.2-30.6 11/09/2016 8:082016 8:14am Mean Corpuscular Hemoglobin Concent 32.6 g/dL 29.6-33.2 11/09/2016 8: 0811/09/2016 8:14am Red Cell Distribution Width 13.2 % 11.6-16.5 11/09/2016 8:08am 2016 8:14am Platelet Count 180 K/ul 150-450 11/09/2016 8:08am 11/09/2016 8:14am Mean Platelet Volume 10.4 fL 6.9-11.0 11/09/2016 8:08am 11/09/2016 8: 14am Neutrophils (%) (Auto) 84.6 % H 37.00-80.00 11/09/2016 8:082016 8:14am Lymphocytes (%) (Auto) 9.3 % L 10.00-50.00 11/09/2016 8:am 11/09/2016 8:14am Monocytes (%) (Auto) 4.6 % 0.0-12.00 11/09/2016 8:08am 11/09/2016 8: 14am Eosinophils (%) (Auto) 0.7 % [...] Blood Urea Nitrogen 17 mg/dL 8.0-26.0 11/09/2016 8:0811/09/2016 8: 31am Random Glucose 101 mg/dL 70-115 11/09/2016 8:08am 11/09/2016 8:31am Creatinine 1.1 mg/dl 0.72-1.25 11/09/2016 8:0811/09/2016 8:31am Estimated GFR (Non- > 60 11/09/2016 8:082016 8:31am NORMAL eGFR: >=60 ml/min/1.73 m2 KIDNEY DISEASE: < 60 ml/min/1.73 m2 KIDNEY FAILURE: < 15 ml/min/1.73 m2 SOURCE: NKDEP (National Kidney Disease Education Program).NIH.GOV Calcium Level 9.4 mg/dL 8.6-10.6 11/09/2016 8:0811/09/2016 8:31am Aspartate Amino Transf (AST/SGOT) 26 IU/L [...] 11/09/2016 8:31am Procedures Procedure Status Date Provider(s) COMPLETE CBC W/AUTO DIFF WBC Completed 10/20/16 ROUTINE VENIPUNCTURE Completed 10/20/16 LIPID PANEL Completed 10/20/16 ASSAY THYROID STIM HORMONE Completed 10/20/16 COMPREHEN METABOLIC PANEL Completed 10/20/16 EMERGENCY DEPT VISIT Completed 11/09/16 ASSAY OF LIPASE Completed 11/09/16 COMPLETE CBC W/AUTO DIFF WBC Completed 11/09/16 ROUTINE VENIPUNCTURE Completed 11/09/16 COMPREHEN METABOLIC PANEL Completed 11/09/16 RMVL DEVITAL TIS 20 CM/< Completed 09/01/17 BROOKE DUMONT ASSEMBLY ASSOCIATE EXCISION OF LEFT FOOT SKIN, EXTERNAL APPROACH Completed 09/01/[address]KE [address]UMONT ASSEMBLY ASSOCIATE CT HEAD/BRAIN W/O DYE Completed 09/04/17 EMERGENCY DEPT VISIT Completed 09/04/17 CT NECK SPINE W/O DYE Completed 09/04/17 CT Head WO contrast Completed 09/04/17 MICA LEDEZMA MD Computed tomography of cervical spine without contrast Completed 09/04/17 MICA LEDEZMA MD Ultrasound of artery of left lower extremity Completed 09/29/17 BROOKE DUMONT ASSEMBLY ASSOCIATE CT Head WO contrast Active 10/09/17 RAY FLEMING Encounters Encounter Location Arrival/Admit Date Discharge/Depart Date Attending Provider Departed Emergency Room [facility] 10/09/17 3:40pm 10/09/17 6: 06pm RAY FLEMING Registered Referred [facility] 09/29/17 11:04am MARS OCAMPO MD Registered Referred [facility] 09/29/17 9:38am BROOKE DUMONT APRN Registered Referred [facility] 09/27/17 8:22am BROOKE DUMONT APRN Registered Referred [facility] 09/22/17 8:47am BROOKE DUMONT APRN Registered Referred [facility] 09/15/17 8:56am BROOKE DUMONT APRN Departed Emergency Room [facility] 09/04/17 10:13am 09/04/17 12:21pm MICA LEDEZMA MD Registered Referred [facility] 09/01/17 10:21am BROOKE DUMONT APRN Registered [facility] 08/07/17 1:30pm BROOKE DUMONT APRN Departed Emergency Room [facility] 11/09/16 7:45am 11/09/16 9: 11am RAY FLEMING Registered Referred [facility] 10/20/16 7:56am BROOKE DUMONT APRN Recent Diagnosis
--- OUTSIDE RECORDS SUMMARY | 2018-11-17 21:20 | XMS REPORT | Continuity of Care Document ---
Author Author [facility] Organization [facility] Address [address] [address] Care Team Providers Care Stitching Machine Setter Name Role Phone BROOKE DUMONT APRN PCP Insurance Providers Guarantor Tyler Carlin Address [address] [place] [address] Payer Medicare Policy Number [id number] Subscriber's Name Tyler Carlin Relationship 18 Self/Same As Patient Group Name MEDICARE Effective Date 12 Payer Medicaid [place] [address] Policy Number [id number] Subscriber's Name Tyler Carlin Relationship 18 Self/Same As Patient Group Number [id number] Advance Directives Directive Response Recorded Date/Time Advance Directives No 11/09/16 8:53am Living Will No 08/27/11 7:58pm Power of Ton Container Filler for Healthcare Arin - IFEANYI MAYS-SISTER 12/14/12 8:03am Problems Medical Problem Onset Date Status Choking [...] (2) Times A Day 60 Tab 07/31/17 Fluticasone Propionate 50 Mcg/Actuation [place].susp 50 Mcg Nasal Two (2) Times A [...] directed by package insert to thicken liquids. 04/19/17 Trazodone Hcl 100 Mg Tablet 100 Mg [...] Applicable Not Applicable Recreational drug use None 09/01/2017 11:32am Not Applicable Not Applicable Smoking Status Start Date Stop Date Never Smoker Hospital Discharge Instructions Current inpatient/outpatient. Discharge instructions are currently unavailable. Plan of Care Current inpatient/outpatient. The plan of care is currently unavailable. Functional Status No functional status information available. Allergies, Adverse Reactions, Alerts Allergen Type Severity Reaction Status Last Updated tetracycline ([id number]) Allergy Unknown Active 08/07/17 Immunizations Query Response on File Recorded Date/Time Hx Pneumococcal Vaccination Unknown 12/14/12 8:03am Vital Signs Acute Vital Signs Vital Response Date/Time Blood Pressure 105/84 mm Hg 11/09/2016 8:49am Ambulatory Vital Signs Vital Response Date/Time Height [...] 8:0811/09/2016 8:14am Hematocrit 49.1 % 34.0-54.0 11/09/2016 8:0811/09/2016 8:14am Mean Corpuscular Volume 88.0 fL 83.2-94.4 [...] Lymphocytes # (Auto) 1.1 K/uL 0.6-3.4 11/09/2016 8:0811/09/2016 8: 14am Monocytes # (Auto) 0.6 K/uL 0.0-0.9 11/09/2016 8:0811/09/2016 8: 14am Eosinophils # (Auto) 0.1 K/uL 0.0-0.7 11/09/2016 8:11/09/2016 8: 14am Basophils # (Auto) 0.1 K/uL [...] Completed 11/09/16 COMPREHEN METABOLIC PANEL Completed 11/09/16 Encounters Encounter Location Arrival/Admit Date Discharge/Depart Date Attending Provider Registered Referred [facility] 09/01/17 10:21am BROOKE DUMONT APRN Registered Practice [facility] 08/07/17 1:30pm BROOKE DUMONT APRN Departed Emergency Room [facility] 11/09/16 7:45am 11/09/16 9: 11am RAY FLEMING Registered Referred [facility] 10/20/16 7:56am BROOKE DUMONT APRN
--- OUTSIDE RECORDS SUMMARY | 2018-11-17 21:21 | XMS REPORT | Continuity of Care Document ---
Author Organization Unknown Address Unknown Allergies Active Description Code Type Severity Reaction Onset Reported/Identified Relationship to Patient Clinical Status Yes TETRACYCLINE UNKNOWN UNKNOWN Yes Tetracycline [id number] Drug Allergy Unknown Unknown 05/05/2016 Yes MS - Tetracycline [id number] Drug Allergy Unknown Unknown 2015 Yes Tetracycline [id number] Drug Allergy Unknown Unknown 05/05/2016 Yes tetracycline [id number] Drug Allergy Unknown N/A 10/09/2017 Yes tetracycline [id number] Drug Allergy Unknown N/A 10/09/2017 Medications Medication Packaging Start Date Stop Date Route Dosage Sig BACLOFEN TAB 10 MG (LIORESAL) MG 07/13/2018 PRN TID D5W 1000CC IV BAG INJ ml 201707/10/2018 CONTINUOUSEVERY 0 Hour RANITIDINE TAB 150 MG (ZANTAC) MG 07/03/2018 07/10/2018 BID&0800,2000 Docusate sodium 100mg oral capsule (COLACE) MG 07/03/2018 08/02/2018 BID&0800,2000 TRAZODONE TAB 50 MG (DESYREL) MG 07/12/2018 QHS&2100 MIRTAZAPINE TAB 15 MG (REMERON) MG 07/03/2018 07/09/2018 QHS&2100 LORAZEPAM TAB 0.5 MG (ATIVAN) MG 07/10/2018 PRN Q8H Problems Date Dx Coded Attending Type Code Diagnosis Diagnosed By 06/03/2015 CHRYSTAL PIERCE MD Other R31.9 06/04/2015 CHRYSTAL PIERCE MD Other R31.9 11/06/2015 CHRYSTAL PIERCE MD D64.9 11/06/2015 CHRYSTAL PIERCE MD E78.5 11/06/2015 CHRYSTAL PIERCE MD Other Z12.5 11/06/2015 CHRYSTAL PIERCE MD Z79.899 11/06/2015 CHRYSTAL PIERCE MD Other D64.9 11/06/2015 KARI WINTER CHRYSTAL Bonilla Other E78.5 11/06/2015 KARI WINTER CHRYSTAL Bonilla Other Z12.5 11/06/2015 KARI WINTER CHRYSTAL Bonilla Other Z79.899 11/06/2015 KARI WINTER CHRYSTAL Bonilla Other D64.9 11/06/2015 KARI WINTER CHRYSTAL Bonilla Other E78.5 11/13/2015 KARI WINTER CHRYSTAL Bonilla Other D64.9 11/13/2015 KARI WINTER CHRIS Other E78.5 11/20/2015 KARI WINTER CHRIS Other D64.9 11/20/2015 KARI WINTER CHRIS Other E78.5 11/20/2015 KARI WINTER CHRIS Other Z12.5 11/20/2015 KARI WINTER CHRYSTAL Bonilla Other Z79.899 11/30/2015 JOHN ISLAS MD Other T17.928A 11/30/2015 JOHN ISLAS MD Other X58.XXXA 11/30/2015 KARI WINTER CHRIS Other D64.9 11/30/2015 KARI WINTER CHRYSTAL Bonilla Other E78.5 11/30/2015 KARI WINTER CHRYSTAL Bauer Z12.5 11/30/2015 KARI WINTER CHRYSTAL Bonilla Other Z79.899 11/30/2015 KARI WINTER CHRIS Other D64.9 11/30/2015 KARI WINTER CHRYSTAL Bonilla Other E78.5 11/30/2015 KARI WINTER CHRIS Other D64.9 11/30/2015 KARI WINTER CHRIS Other E78.5 11/30/2015 KARI WINTER CHRIS Other Z12.5 11/30/2015 KARI WINTER CHRYSTAL Bonilla Other Z79.899 11/30/2015 KARI WINTER CHRYSTAL Bonilla Other D64.9 11/30/2015 KARI WINTER CHRIS Other E78.5 03/23/2016 RAY FLEMING Other J06.0 03/23/2016 RAY FLEMING Other Z79.82 03/23/2016 RAY FLEMING Z79.899 03/23/2016 RAY FLEMING Z88.8 05/24/2016 ERWIN, WAQAS K [employer] Other R13.10 05/27/2016 ERWIN, WAQAS K [employer] Other R13.10 10/20/2016 SHORT, BROOKE N [employer] Other E78.5 10/26/2016 SHORT, BROOKE N [employer] Other E78.5 11/09/2016 SHORT, BROOKE N [employer] Other E78.5 09/04/2017 DARIEN WINTER, MICA K Other S00.81XA 09/04/2017 DARIEN WINTER, MICA K Other W05.0XXA 09/04/2017 DARIEN WINTER, MICA K Other Z79.02 09/04/2017 DARIEN WINTER, MICA K Other Z79.899 09/04/2017 DARIEN WINTER, MICA K Other Z88.1 09/04/2017 DARIEN WINTER, MICA K Other Z91.81 09/28/2017 SHORT, BROOKE N [employer] Other L89.892 10/02/2017 SHORT, BROOKE N [employer] Other F79 10/02/2017 SHORT, BROOKE N [employer] Other H91.3 10/02/2017 SHORT, BROOKE N [employer] Other L89.892 10/02/2017 SHORT, BROOKE N [employer] Other Z79.51 10/02/2017 SHORT, BROOKE N [employer] Other Z79.82 10/02/2017 SHORT, BROOKE N [employer] Other Z79.899 10/02/2017 SHORT, BROOKE N [employer] Other Z88.3 10/05/2017 SHORT, BROOKE N [employer] Other L97.329 10/05/2017 SHORT, BROOKE N [employer] Other L89.891 10/05/2017 SHORT, BROOKE N [employer] Other L89.892 10/09/2017 SHAFEI, MOHEDINE Other F84.0 10/09/2017 SHAFEI, MOHEDINE Other F88 10/09/2017 SHAFEI, MOHEDINE Other R29.6 10/09/2017 SHAFEI, MOHEDINE Other W05.0XXA 10/09/2017 SHAFEI, MOHEDINE Other Z04.3 10/09/2017 SHAFEI, MOHEDINE Other Z79.82 10/09/2017 SHAFEI, MOHEDINE Other Z79.899 10/09/2017 SHAFEI, MOHEDINE Other Z88.1 10/09/2017 SHAFEI, MOHEDINE Other Z88.3 10/09/2017 SHAFEI, MOHEDINE Other Z91.81 10/09/2017 SHAFEI, MOHEDINE Other Z99.3 10/20/2017 SHORT, BROOKE N [employer] Other L89.892 10/20/2017 SHORT, BROOKE N [employer] Other Z79.51 10/20/2017 SHORT, BROOKE N [employer] Other Z79.82 10/20/2017 SHORT, BROOKE N [employer] Other Z79.899 10/20/2017 SHORT, BROOKE N [employer] Other Z88.3 10/20/2017 SHORT, BROOKE N [employer] Other F79 10/20/2017 SHORT, BROOKE N [employer] Other H91.3 10/20/2017 SHORT, BROOKE N [employer] Other L89.892 10/20/2017 SHORT, BROOKE N [employer] Other Z79.51 10/20/2017 SHORT, BROOKE N [employer] Other Z79.82 10/20/2017 SHORT, BROOKE N [employer] Other Z79.899 10/20/2017 SHORT, BROOKE N [employer] Other Z88.3 10/20/2017 SHORT, BROOKE N [employer] Other L89.892 10/20/2017 SHORT, BROOKE N [employer] Other Z79.51 10/20/2017 SHORT, BROOKE N [employer] Other Z79.82 10/20/2017 SHORT, BROOKE N [employer] Other Z79.899 10/20/2017 SHORT, BROOKE N [employer] Other Z88.3 10/20/2017 SHORT, BROOKE N [employer] Other L89.891 10/20/2017 SHORT, BROOKE N [employer] Other L89.892 10/20/2017 SHORT, BROOKE N [employer] Other L89.890 10/20/2017 SHORT, BROOKE N [employer] Other Z79.51 10/20/2017 SHORT, BROOKE N [employer] Other Z79.82 10/20/2017 SHORT, BROOKE N [employer] Other Z79.899 10/20/2017 SHORT, BROOKE N [employer] Other Z88.3 10/21/2017 SHORT, BROOKE N [employer] Other L89.892 10/21/2017 SHORT, BROOKE N [employer] Other Z79.51 10/21/2017 SHORT, BROOKE N [employer] Other Z79.82 10/21/2017 SHORT, BROOKE N [employer] Other Z79.899 10/21/2017 SHORT, BROOKE N [employer] Other Z88.3 10/21/2017 SHORT, BROOKE N [employer] Other L89.892 10/21/2017 SHORT, BROOKE N [employer] Other Z79.51 10/21/2017 SHORT, BROOKE N [employer] Other Z79.82 10/21/2017 SHORT, BROOKE N [employer] Other Z79.899 10/21/2017 SHORT, BROOKE N [employer] Other Z88.3 10/21/2017 DAMARIS WINTER, MARS Gibson Other F72 10/21/2017 DAMARIS WINTER, MARS Gibson Other L89.891 10/21/2017 DAMARIS WINTER, MARS Gibson Other L89.892 10/21/2017 DAMARIS WINTER, MARS Gibson Other M21.372 10/21/2017 DAMARIS WINTER, MARS Gibson Other Z79.51 10/21/2017 DAMARIS WINTER, MARS Gibson Other Z79.82 10/21/2017 DAMARIS WINTER, MARS Gibson Other Z79.899 10/21/2017 DAMARIS WINTER, MARS Gibson Other Z88.3 10/21/2017 DAMARIS WINTER, MARS Gibson Other F72 10/21/2017 DAMARIS WINTER, MARS Gibson Other L89.890 10/21/2017 DAMARIS WINTER, MARS Gibson Other Z79.51 10/21/2017 DAMARIS WINTER, MARS Gibson Other Z79.82 10/21/2017 DAMARIS WINTER, MARS Gibson Other Z79.899 10/21/2017 DAMARIS WINTER, MARS Gibson Other Z88.3 10/21/2017 SHORT, BROOKE N [employer] Other L89.890 10/21/2017 SHORT, BROOKE N [employer] Other S91.205A 10/21/2017 SHORT, BROOKE N [employer] Other X58.XXXA 10/21/2017 SHORT, BROOKE N [employer] Other L89.890 10/21/2017 SHORT, BROOKE N [employer] Other S91.205A 10/21/2017 SHORT, BROOKE N [employer] Other X58.XXXA 10/23/2017 SHORT, BROOKE N [employer] Other L89.890 10/23/2017 SHORT, BROOKE N [employer] Other Z79.51 10/23/2017 SHORT, BROOKE N [employer] Other Z79.82 10/23/2017 SHORT, BROOKE N [employer] Other Z79.899 10/23/2017 SHORT, BROOKE N [employer] Other Z88.3 10/23/2017 SHORT, BROOKE N [employer] Other L89.890 10/23/2017 SHORT, BROOKE N [employer] Other Z79.51 10/23/2017 SHORT, BROOKE N [employer] Other Z79.82 10/23/2017 SHORT, BROOKE N [employer] Other Z79.899 10/23/2017 SHORT, BROOKE N [employer] Other Z88.3 10/23/2017 SHORT, BROOKE N [employer] Other F79 10/23/2017 SHORT, BROOKE N [employer] Other H91.3 10/23/2017 SHORT, BROOKE N [employer] Other L89.892 10/23/2017 SHORT, BROOKE N [employer] Other Z79.51 10/23/2017 SHORT, BROOKE N [employer] Other Z79.82 10/23/2017 SHORT, BROOKE N [employer] Other Z79.899 10/23/2017 SHORT, BROOKE N [employer] Other Z88.3 10/23/2017 SHORT, BROOKE N [employer] Other L89.890 10/23/2017 SHORT, BROOKE N [employer] Other Z79.51 10/23/2017 SHORT, BROOKE N [employer] Other Z79.82 10/23/2017 SHORT, BROOKE N [employer] Other Z79.899 10/23/2017 SHORT, BROOKE N [employer] Other Z88.3 10/23/2017 SHORT, BROOKE N [employer] Other L89.890 10/23/2017 SHORT, BROOKE N [employer] Other Z79.51 10/23/2017 SHORT, BROOKE N [employer] Other Z79.82 10/23/2017 SHORT, BROOKE N [employer] Other Z79.899 10/23/2017 SHORT, BROOKE N [employer] Other Z88.3 10/23/2017 SHORT, BROOKE N [employer] Other L89.892 10/23/2017 SHORT, BROOKE N [employer] Other Z79.51 10/23/2017 SHORT, BROOKE N [employer] Other Z79.82 10/23/2017 SHORT, BROOKE N [employer] Other Z79.899 10/23/2017 SHORT, BROOKE N [employer] Other Z88.3 10/23/2017 DAMARIS WINTER, MARS Gibson Other F72 10/23/2017 DAMARIS WINTER, MARS Gibson Other L89.891 10/23/2017 DAMARIS WINTER, MARS Gibson Other L89.892 10/23/2017 DAMARIS WINTER, MARS Gibson Other M21.372 10/23/2017 DAMARIS WINTER, MARS Gibson Other Z79.51 10/23/2017 DAMARIS WINTER, MARS Gibson Other Z79.82 10/23/2017 DAMARIS WINTER, MARS Gibson Other Z79.899 10/23/2017 DAMARIS WINTER, MARS Gibson Other Z88.3 10/23/2017 SHORT, BROOKE N [employer] Other L89.891 10/23/2017 SHORT, BROOKE N [employer] Other L89.892 10/23/2017 SHORT, BROOKE N [employer] Other M79.604 10/23/2017 SHORT, BROOKE N [employer] Other M79.605 10/23/2017 DAMARIS WINTER, MARS Gibson Other F72 10/23/2017 DAMARIS WINTER, MARS Gibson Other L89.890 10/23/2017 DAMARIS WINTER, MARS Gibson Other Z79.51 10/23/2017 DAMARIS WINTER, MARS Gibson Other Z79.82 10/23/2017 DAMARIS WINTER, MARS Gibson Other Z79.899 10/23/2017 DAMARIS WINTER, MARS iGbson Other Z88.3 10/23/2017 SHORT, BROOKE N [employer] Other L89.890 10/23/2017 SHORT, BROOKE N [employer] Other S91.205A 10/23/2017 SHORT, BROOKE N [employer] Other X58.XXXA 10/24/2017 SHORT, BROOKE N [employer] Other F79 10/24/2017 SHORT, BROOKE N [employer] Other H91.3 10/24/2017 SHORT, BROOKE N [employer] Other L89.892 10/24/2017 SHORT, BROOKE N [employer] Other Z79.51 10/24/2017 SHORT, BROOKE N [employer] Other Z79.82 10/24/2017 SHORT, BROOKE N [employer] Other Z79.899 10/24/2017 SHORT, BROOKE N [employer] Other Z88.3 10/24/2017 SHORT, BROOKE N [employer] Other L89.890 10/24/2017 SHORT, BROOKE N [employer] Other Z79.51 10/24/2017 SHORT, BROOKE N [employer] Other Z79.82 10/24/2017 SHORT, BROOKE N [employer] Other Z79.899 10/24/2017 SHORT, BROOKE N [employer] Other Z88.3 10/24/2017 SHORT, BROOKE N [employer] Other L89.890 10/24/2017 SHORT, BROOKE N [employer] Other Z79.51 10/24/2017 SHORT, BROOKE N [employer] Other Z79.82 10/24/2017 SHORT, BROOKE N [employer] Other Z79.899 10/24/2017 SHORT, BROOKE N [employer] Other Z88.3 10/24/2017 SHORT, BROOKE N [employer] Other L89.892 10/24/2017 SHORT, BROOKE N [employer] Other Z79.51 10/24/2017 SHORT, BROOKE N [employer] Other Z79.82 10/24/2017 SHORT, BROOKE N [employer] Other Z79.899 10/24/2017 SHORT, BROOKE N [employer] Other Z88.3 10/24/2017 DAMARIS WINTER, NATHAN Other F72 10/24/2017 DAMARIS WINTER, NATHAN Other L89.891 10/24/2017 DAMARIS WINTER, NATHAN Other L89.892 10/24/2017 DAMARIS WINTER, NATHAN Other M21.372 10/24/2017 DAMARIS WINTER, NATHAN Other Z79.51 10/24/2017 DAMARIS WINTER, NATHAN Other Z79.82 10/24/2017 DAMARIS WINTER, NATHAN Other Z79.899 10/24/2017 DAMARIS WINTER, NATHAN Other Z88.3 10/24/2017 SHORT, BROOKE N [employer] Other L89.891 10/24/2017 SHORT, BROOKE N [employer] Other L89.892 10/24/2017 SHORT, BROOKE N [employer] Other M79.604 10/24/2017 SHORT, BROOKE N [employer] Other M79.605 10/24/2017 DAMARIS WINTER, NATHAN Other F72 10/24/2017 DAMARIS WINTER, MARS Gibson Other L89.890 10/24/2017 DAMARIS WINTER, MARS Gibson Other Z79.51 10/24/2017 DAMARIS WINTER, MARS Gibson Other Z79.82 10/24/2017 DAMARIS WINTER, MARS Gibson Other Z79.899 10/24/2017 DAMARIS WINTER, MARS Gibson Other Z88.3 10/24/2017 SHORT, BROOKE N [employer] Other L89.890 10/24/2017 SHORT, BROOKE N [employer] Other S91.205A 10/24/2017 SHORT, BROOKE N [employer] Other X58.XXXA 10/25/2017 SHORT, BROOKE N [employer] Other L89.892 10/25/2017 SHORT, BROOKE N [employer] Other Z79.51 10/25/2017 SHORT, BROOKE N [employer] Other Z79.82 10/25/2017 SHORT, BROOKE N [employer] Other Z79.899 10/25/2017 SHORT, BROOKE N [employer] Other Z88.3 10/25/2017 SHORT, BROOKE N [employer] Other L89.892 10/25/2017 SHORT, BROOKE N [employer] Other Z79.51 10/25/2017 SHORT, BROOKE N [employer] Other Z79.82 10/25/2017 SHORT, BROOKE N [employer] Other Z79.899 10/25/2017 SHORT, BROOKE N [employer] Other Z88.3 10/25/2017 DAMARIS WINTER, MARS Gibson Other F72 10/25/2017 DAMARIS WINTER, MARS Gibson Other L89.891 10/25/2017 DAMARIS WINTER, MARS Gibson Other L89.892 10/25/2017 DAMARIS WINTER, MARS Gibson Other M21.372 10/25/2017 DAMARIS WINTER, MARS Gibson Other Z79.51 10/25/2017 DAMARIS WINTER, MARS Gibson Other Z79.82 10/25/2017 DAMARIS WINTER, MARS Gibson Other Z79.899 10/25/2017 DAMARIS WINTER, MARS Gibson Other Z88.3 10/25/2017 DAMARIS WINTER, MARS Gibson Other F72 10/25/2017 DAMARIS WINTER, MARS Gibson Other L89.890 10/25/2017 DAMARIS WINTER, MARS Gibson Other Z79.51 10/25/2017 DAMARIS WINTER, MARS iGbson Other Z79.82 10/25/2017 DAMARIS WINTER, MARS Gibson Other Z79.899 10/25/2017 DAMARIS WINTER, NATHAN Other Z88.3 10/26/2017 SHORT, BROOKE N [employer] Other F79 10/26/2017 SHORT, BROOKE N [employer] Other H91.3 10/26/2017 SHORT, BROOKE N [employer] Other L89.892 10/26/2017 SHORT, BROOKE N [employer] Other Z79.51 10/26/2017 SHORT, BROOKE N [employer] Other Z79.82 10/26/2017 SHORT, BROOKE N [employer] Other Z79.899 10/26/2017 SHORT, BROOKE N [employer] Other Z88.3 10/26/2017 SHORT, BROOKE N [employer] Other L89.890 10/26/2017 SHORT, BROOKE N [employer] Other Z79.51 10/26/2017 SHORT, BROOKE N [employer] Other Z79.82 10/26/2017 SHORT, BROOKE N [employer] Other Z79.899 10/26/2017 SHORT, BROOKE N [employer] Other Z88.3 10/26/2017 SHORT, BROOKE N [employer] Other L89.890 10/26/2017 SHORT, BROOKE N [employer] Other Z79.51 10/26/2017 SHORT, BOROKE N [employer] Other Z79.82 10/26/2017 SHORT, BROOKE N [employer] Other Z79.899 10/26/2017 SHORT, BROOKE N [employer] Other Z88.3 10/26/2017 SHORT, BROOKE N [employer] Other L89.892 10/26/2017 SHORT, BROOKE N [employer] Other Z79.51 10/26/2017 SHORT, BROOKE N [employer] Other Z79.82 10/26/2017 SHORT, BROOKE N [employer] Other Z79.899 10/26/2017 SHORT, BROOKE N [employer] Other Z88.3 10/26/2017 DAMARIS WINTER, NATHAN Other F72 10/26/2017 DAMARIS WINTER, NATHAN Other L89.891 10/26/2017 DAMARIS WINTER, NATHAN Other L89.892 10/26/2017 DAMARIS WINTER, NATHAN Other M21.372 10/26/2017 DAMARIS WINTER, NATHAN Other Z79.51 10/26/2017 DAMARIS WINTER, NATHAN Other Z79.82 10/26/2017 DAMARIS WINTER, MARS Gibson Other Z79.899 10/26/2017 DAMARIS WINTER, MARS Gibson Other Z88.3 10/26/2017 SHORT, BROOKE N [employer] Other L89.891 10/26/2017 SHORT, BROOKE N [employer] Other L89.892 10/26/2017 SHORT, BROOKE N [employer] Other M79.604 10/26/2017 SHORT, BROOKE N [employer] Other M79.605 10/26/2017 DAMARIS WINTER, MARS Gibson Other F72 10/26/2017 DAMARIS WINTER, MARS Gibson Other L89.890 10/26/2017 DAMARIS WINTER, MARS Gibson Other Z79.51 10/26/2017 DAMARIS WINTER, MARS Gibson Other Z79.82 10/26/2017 DAMARIS WINTER, MARS Gibson Other Z79.899 10/26/2017 DAMARIS WINTER, MARS Gibson Other Z88.3 10/26/2017 SHORT, BROOKE N [employer] Other L89.890 10/26/2017 SHORT, BROOKE N [employer] Other S91.205A 10/26/2017 SHORT, BROOKE N [employer] Other X58.XXXA 10/26/2017 SHORT, BROOKE N [employer] Other L89.890 10/26/2017 SHORT, BROOKE N [employer] Other S91.205A 10/26/2017 SHORT, BROOKE N [employer] Other X58.XXXA 10/30/2017 SHORT, BROOKE N [employer] Other L89.891 10/30/2017 SHORT, BROOKE N [employer] Other L89.892 10/30/2017 SHORT, BROOKE N [employer] Other Z79.82 10/30/2017 SHORT, BROOKE N [employer] Other Z79.899 11/21/2017 SHORT, BROOKE N [employer] Other F72 11/21/2017 SHORT, BROOKE N [employer] Other H91.3 11/21/2017 SHORT, BROOKE N [employer] Other L89.891 11/21/2017 SHORT, BROOKE N [employer] Other L89.892 11/21/2017 SHORT, BROOKE N [employer] Other Z79.51 11/21/2017 SHORT, BROOKE N [employer] Other Z79.82 11/21/2017 SHORT, BROOKE N [employer] Other Z79.899 11/21/2017 SHORT, BROOKE N [employer] Other Z88.3 11/27/2017 SHORT, BROOKE N [employer] Other F72 11/27/2017 SHORT, BROOKE N [employer] Other H91.3 11/27/2017 SHORT, BROOKE N [employer] Other L89.891 11/27/2017 SHORT, BROOKE N [employer] Other L89.892 11/27/2017 SHORT, BROOKE N [employer] Other Z79.51 11/27/2017 SHORT, BROOKE N [employer] Other Z79.82 11/27/2017 SHORT, BROOKE N [employer] Other Z79.899 11/27/2017 SHORT, BROOKE N [employer] Other Z88.3 07/03/2018 JAIMES, NICK A 276.0 HYPEROSMOLALITY AND/OR HYPERNATREMIA 07/03/2018 JAIMES, NICK A E87.0 HYPEROSMOLALITY AND HYPERNATREMIA 07/03/2018 JAIMES, NICK A 276.0 HYPEROSMOLALITY AND/OR HYPERNATREMIA 07/03/2018 JAIMES, NICK W 333.2 MYOCLONUS 07/03/2018 JAIMES, NICK A E87.0 HYPEROSMOLALITY AND HYPERNATREMIA 07/03/2018 JAIMES, NICK W G25.3 MYOCLONUS 07/03/2018 JAIMES, NICK A 276.0 HYPEROSMOLALITY AND/OR HYPERNATREMIA 07/03/2018 JAIMES, NICK W 318.1 SEVERE INTELLECTUAL DISABILITIES 07/03/2018 JAIMES, NICK W 333.2 MYOCLONUS 07/03/2018 JAIMES, NICK A E87.0 HYPEROSMOLALITY AND HYPERNATREMIA 07/03/2018 JAIMES, NICK W F72 SEVERE INTELLECTUAL DISABILITIES 07/03/2018 JAIMES, NICK W G25.3 MYOCLONUS 07/03/2018 JAIMES, NICK A 276.0 HYPEROSMOLALITY AND/OR HYPERNATREMIA 07/03/2018 JAIMES, NICK W 276.51 DEHYDRATION 07/03/2018 JAIMES, NICK W 318.1 SEVERE INTELLECTUAL DISABILITIES 07/03/2018 JAIMES, NICK W 333.2 MYOCLONUS 07/03/2018 JAIMES, NICK W E86.0 DEHYDRATION 07/03/2018 BK JAIMESHEL A E87.0 HYPEROSMOLALITY AND HYPERNATREMIA 07/03/2018 NICK JAIMES W F72 SEVERE INTELLECTUAL DISABILITIES 07/03/2018 NICK JAIMES W G25.3 MYOCLONUS 07/04/2018 BK JAIMESHEL A 276.0 HYPEROSMOLALITY AND/OR HYPERNATREMIA 07/04/2018 NICK JAIMES W 276.51 DEHYDRATION 07/04/2018 BK JAIMESHEL W 318.1 SEVERE INTELLECTUAL DISABILITIES 07/04/2018 NICK JAIMES W 333.2 MYOCLONUS 07/04/2018 BK JAIMESHEL W 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, UNSPECIFIED 07/04/2018 NICK JAIMES W E86.0 DEHYDRATION 07/04/2018 BK JAIMESHEL A E87.0 HYPEROSMOLALITY AND HYPERNATREMIA 07/04/2018 NICK JAIMES W F72 SEVERE INTELLECTUAL DISABILITIES 07/04/2018 NICK JAIMES W G25.3 MYOCLONUS 07/04/2018 NICK JAIMES W 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, UNSPECIFIED 08/08/2018 MILTON VELEZ MD, Ot 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, UNSPECIFIED 08/08/2018 MILTON VELEZ MD, Ot G82.50 QUADRIPLEGIA, UNSPECIFIED 08/08/2018 MILTON VELEZ MD Ot L22 DIAPER DERMATITIS 08/08/2018 MILTON VELEZ MD, Ot 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, STAGE 2 08/08/2018 MILTON VELEZ MD Ot N39.42 INCONTINENCE WITHOUT SENSORY AWARENESS 08/20/2018 MILTON VELEZ MD, Ot 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, UNSPECIFIED 08/20/2018 MILTON VELEZ MD, Ot G82.50 QUADRIPLEGIA, UNSPECIFIED 08/20/2018 MILTON VELEZ MD, Ot L22 DIAPER DERMATITIS 08/20/2018 MILTON VELEZ MD, Ot 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, STAGE 2 08/20/2018 MILTON VELEZ MD Ot N39.42 INCONTINENCE WITHOUT SENSORY AWARENESS 08/22/2018 MILTON VELEZ MD, Ot 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, UNSPECIFIED 08/22/2018 MILTON VELEZ MD, Ot G82.50 QUADRIPLEGIA, UNSPECIFIED 08/22/2018 MILTON VELEZ MD Ot L22 DIAPER DERMATITIS 08/22/2018 MILTON VELEZ MD Ot 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, STAGE 2 08/22/2018 MILTON VELEZ MD Ot N39.42 INCONTINENCE WITHOUT SENSORY AWARENESS 08/26/2018 MILTON VELEZ MD, Ot 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, UNSPECIFIED 08/26/2018 MILTON VELEZ MD, Ot G82.50 QUADRIPLEGIA, UNSPECIFIED 08/26/2018 MILTON VELEZ MD Ot L22 DIAPER DERMATITIS 08/26/2018 MILTON VELEZ MD Ot 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, STAGE 2 08/26/2018 MILTON VELEZ MD Ot N39.42 INCONTINENCE WITHOUT SENSORY AWARENESS 08/29/2018 MILTON VELEZ MD, Ot 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, UNSPECIFIED 08/29/2018 MILTON VELEZ MD, Ot G82.50 QUADRIPLEGIA, UNSPECIFIED 08/29/2018 MILTON VELEZ MD Ot L22 DIAPER DERMATITIS 08/29/2018 MILTON VELEZ MD Ot 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, STAGE 2 08/29/2018 MILTON VELEZ MD Ot N39.42 INCONTINENCE WITHOUT SENSORY AWARENESS 2018 MILTON VELEZ MD, Ot 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, UNSPECIFIED 2018 MILTON VELEZ MD, Ot G82.50 QUADRIPLEGIA, UNSPECIFIED 2018 MILTON VELEZ MD Ot L22 DIAPER DERMATITIS 2018 MILTON VELEZ MD Ot 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, STAGE 2 2018 MILTON VELEZ MD Ot N39.42 INCONTINENCE WITHOUT SENSORY AWARENESS 09/11/2018 MILTON VELEZ MD, Ot 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, UNSPECIFIED 09/11/2018 MILTON VELEZ MD, Ot G82.50 QUADRIPLEGIA, UNSPECIFIED 09/11/2018 MILTON VELEZ MD Ot L22 DIAPER DERMATITIS 09/11/2018 MILTON VELEZ MD Ot 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, STAGE 2 09/11/2018 MILTON VELEZ MD Ot N39.42 INCONTINENCE WITHOUT SENSORY AWARENESS 09/12/2018 MILTON VELEZ MD, Ot 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, UNSPECIFIED 09/12/2018 MILTON VELEZ MD, Ot G82.50 QUADRIPLEGIA, UNSPECIFIED 09/12/2018 MILTON VELEZ MD, Ot L22 DIAPER DERMATITIS 09/12/2018 MILTON VELEZ MD Ot 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, STAGE 2 09/12/2018 MILTON VELEZ MD, Ot N39.42 INCONTINENCE WITHOUT SENSORY AWARENESS 09/28/2018 MILTON VELEZ MD, Ot 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, UNSPECIFIED 09/28/2018 MILTON VELEZ MD, Ot G82.50 QUADRIPLEGIA, UNSPECIFIED 09/28/2018 MILTON VELEZ MD, Ot L22 DIAPER DERMATITIS 09/28/2018 MILTON VELEZ MD, Ot 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, STAGE 2 09/28/2018 MILTON VELEZ MD, Ot N39.42 INCONTINENCE WITHOUT SENSORY AWARENESS 10/02/2018 MILTON VELEZ MD, Ot 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, UNSPECIFIED 10/02/2018 MILTON VELEZ MD, Ot L22 DIAPER DERMATITIS 10/02/2018 MILTON VELEZ MD Ot 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, STAGE 2 10/02/2018 MILTON VELEZ MD, Ot N39.42 INCONTINENCE WITHOUT SENSORY AWARENESS 10/29/2018 MILTON VELEZ MD, Ot 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 Results Test Result Range Thyroid Stimulating Hormone - 07/03/18 15:15 TSH 2.65 mIU/mL 0.32-5.00 Sodium - 07/03/18 18:15 Sodium 164 mmol/L 134-148 Sodium - 07/03/18 21:15 Sodium 160 mmol/L 134-148 Sodium - 07/04/18 00:15 Sodium 157 mmol/L 134-148 Sodium - 07/04/18 03:32 Sodium 154 mmol/L 134-148 Sodium - 07/04/18 06:25 Sodium 152 mmol/L 134-148 Sodium - 07/04/18 09:15 Sodium 153 mmol/L 134-148 Sodium - 07/04/18 12:15 Sodium 149 mmol/L 134-148 Sodium - 07/04/18 15:02 Sodium 150 mmol/L 134-148 Encounters ACCT No. Visit Date/Time Discharge Status Pt. Type Provider Facility Loc./Unit Complaint [id number] 11/16/2017 13:00:00 11/16/2017 23:59:59 CLS Preadmit BROOKE DUMONT [facility]01 [id number] 10/26/2017 14:27:00 10/26/2017 23:59:59 CLS Outpatient BROOKE DUMONT [facility]01 [id number] 10/24/2017 12:06:00 10/24/2017 23:59:59 CLS Outpatient BROOKE DUMONT [facility] OPD [id number] 10/20/2017 08:01:00 10/20/2017 23:59:59 CLS Outpatient BROOKE DUMONT [facility]01 [id number] 10/10/2017 12:55:00 10/10/2017 23:59:59 CLS Outpatient MARS OCAMPO MD [facility]01 [id number] 10/09/2017 15:40:00 10/09/2017 18:06:00 DIS Emergency RAY FLEMING [facility] ER [id number] 09/29/2017 11:04:00 09/29/2017 23:59:59 CLS Outpatient MARS OCAMPO MD [facility]01 [id number] 09/29/2017 09:38:00 09/29/2017 23:59:59 CLS Outpatient BROOKE DUMONT [facility] OPD [id number] 09/27/2017 08:22:00 09/27/2017 23:59:59 CLS Outpatient BROOKE DUMONT [facility] WCC01 [id number] 09/22/2017 08:47:00 09/22/2017 23:59:59 CLS Outpatient BROOKE DUMONT [facility] WC01 [id number] 09/15/2017 08:56:00 09/15/2017 23:59:59 CLS Outpatient BROOKE DUMONT [facility] WC01 [id number] 09/04/2017 10:13:00 09/04/2017 12:21:00 DIS Emergency MICA LEDEZMA MD [facility] ER [id number] 09/01/2017 10:21:00 09/01/2017 23:59:59 CLS Outpatient BROOKE DUMONT [facility] WC01 [id number] 11/09/2016 07:45:00 11/09/2016 09:11:00 DIS Emergency LONNIE [facility] ER [id number] 10/20/2016 07:56:00 10/20/2016 23:59:59 CLS Outpatient BROOKE DUMONT [facility] OPD [id number] 05/24/2016 09:16:00 05/24/2016 23:59:59 CLS Outpatient WAQAS HOOD [facility] OPD [id number] 04/26/2016 10:49:00 04/26/2016 12:57:00 DIS Emergency LONNIE [facility] ER [id number] 03/23/2016 11:12:00 03/23/2016 12:51:00 DIS Emergency LONNIE [facility] ER [id number] 11/30/2015 11:29:00 11/30/2015 14:10:00 DIS Emergency JOHN ISLAS MD [facility] ER [id number] 11/03/2015 07:41:00 11/03/2015 23:59:59 CLS Outpatient KARI WINTER [facility] SPC [id number] 11/02/2015 07:50:00 11/02/2015 23:59:59 CLS Outpatient KARI WINTER [facility] OPD [id number] 05/29/2015 11:53:00 05/29/2015 23:59:59 CLS Outpatient KARI WINTER, CHRYSTAL Bonilla [facility] SPC [id number] 11/02/2017 18:00:36 ACT Document Registration [id number] 10/01/2018 10:46:00 10/01/2018 23:59:59 CLS Outpatient MILTON VELEZ MD [facility] [id number] 09/03/2018 10:35:00 09/03/2018 23:59:59 CLS Outpatient MILTON VELEZ MD [facility] [id number] 08/20/2018 11:02:00 08/20/2018 23:59:59 CLS Outpatient MILTON VELEZ MD [facility] [id number] 08/06/2018 13:54:00 08/06/2018 23:59:59 CLS Outpatient MILTON VELEZ MD [facility] [id number] 08/07/2017 13:30:00 08/07/2017 23:59:59 CLS Outpatient BROOKE DUMONT APRN [facility] [id number] 07/03/2018 14:14:00 07/04/2018 15:03:00 DIS Outpatient NICK JAIMES [facility] MED-SURG [id number] 07/03/2018 14:51:36 Document Registration
--- NOTE | 2018-11-17 21:24 | ED General ---
General Stated Complaint: SOB Source of Information: Patient, EMS, Family Exam Limitations: Language Barrier (cerebral palsy nonverbal) (CHARLIE VELEZ) History of Present Illness Date Seen by Provider: November 17, 2018 Time Seen by Provider: 21:07 Initial Comments Patient presents to ER by EMS from his home where he lives with his family with chief complaint that he was having shortness of breath oxygen sats in the 70s EMS reports the mid 80s on room air. Does not use oxygen. Does not smoke. Has a history of mild COPD. EMS gave him a breathing treatment which brought him up in the mid 90s because they heard some end expiratory wheezing. Patient has not been coughing per EMS. Blood sugar is 152. The rest of the patient's information is coming in with family when they arrive. Patient has baseline contractures. (CHARLIE VELEZ) Allergies and Home Medications Allergies Coded Allergies: No Known Drug Allergies (Unverified , 11/17/18) Patient Home Medication List Home Medication List Reviewed: Yes (CHARLIE VELEZ) Review of Systems Review of Systems Constitutional: see HPI (patient is unable to give any meaningful review of systems as he is nonverbal) (CHARLIE VELEZ) Past Ufdjbiw-Fzxpkn-Jgzygk Hx Patient Social History Alcohol Use: Denies Use Recreational Drug Use: No Smoking Status: Never a Smoker (CHARLIE VELEZ) Physical Exam-Suspected Sepsis Physical Exam Vital Signs Capillary Refill : (CHARLIE VELEZ) Height, Weight, BMI Height: '" Weight: lbs. oz. kg; BMI Method: General Appearance: No Apparent Distress, WD/WN Eyes: Bilateral Eye Normal Inspection, Bilateral Eye PERRL, Bilateral Eye EOMI HEENT: PERRL/EOMI, TMs Normal, Normal ENT Inspection; No Moist Mucous Membranes Neck: Full Range of Motion, Normal Inspection, Non Tender, Supple Respiratory: Normal Breath Sounds, No Accessory Muscle Use, No Respiratory Distress, Decreased Breath Sounds, Respiratory Distress (moderate oxygen saturations in the upper 80s on room air after his breathing treatment) Cardiovascular: Regular Rate, Rhythm, No Edema, No Murmur, Normal Peripheral Pulses Gastrointestinal: Normal Bowel Sounds, No Pulsatile Mass, Non Tender, Soft Extremity: Normal Inspection, Non Tender, No Calf Tenderness, No Pedal Edema, Slow Capillary Refill (3-4 seconds), Other (advanced contractures all 4 extremities) Neurologic/Psychiatric: Alert Skin: normal color, warm/dry (CHARLIE VELEZ) Focused Exam Lactate Level 11/17/18 21:14: Lactic Acid Level 1.35 (ISRAEL QUEEN APRN) Lactic Acid Level Laboratory Tests Test 11/17/18 21:14 Lactic Acid Level 1.35 MMOL/L (0.50-2.00) (ISRAEL QUEEN APRN) Procedures/Interventions Lumen: triple Central Line Procedure: betadine prep Position: subclavian (L) Anesthesia: local Volume Anesthetic (ccs): 5 Complications: none Post Position: sutured, good blood return, position confirmed w/ CXR Attempted central line placement on the right, unable to catheterize the very collapsible internal jugular. Any further attempts and moved to the left side where a central line was placed at 16.5 cm depth without any complications. (ISRAEL QUEEN APRN) Progress/Results/Core Measures Suspected Sepsis SIRS Temperature: Pulse: Respiratory Rate: Laboratory Tests 11/17/18 21:14: White Blood Count 12.3H Blood Pressure / Mean: 11/17/18 21:14: Lactic Acid Level 1.35 Laboratory Tests 11/17/18 21:14: Creatinine 0.75, INR Comment 1.0, Platelet Count 319, Total Bilirubin 0.3 (CHARLIE VELEZ) Results/Orders Lab Results Laboratory Tests Test 11/17/18 21:14 11/17/18 21:19 Range/Units White Blood Count 12.3 H 4.3-11.0 10^3/uL Red Blood Count 4.81 4.35-5.85 10^6/uL Hemoglobin 13.4 13.3-17.7 G/DL Hematocrit 42 40-54 % Mean Corpuscular Volume 88 80-99 FL Mean Corpuscular Hemoglobin 28 25-34 PG Mean Corpuscular Hemoglobin Concent 32 32-36 G/DL Red Cell Distribution Width 15.7 H 10.0-14.5 % Platelet Count 319 130-400 10^3/uL Mean Platelet Volume 10.1 7.4-10.4 FL Neutrophils (%) (Auto) 74 42-75 % Lymphocytes (%) (Auto) 15 12-44 % Monocytes (%) (Auto) 5 0-12 % Eosinophils (%) (Auto) 6 0-10 % Basophils (%) (Auto) 1 0-10 % Neutrophils # (Auto) 9.1 H 1.8-7.8 X 10^3 Lymphocytes # (Auto) 1.9 1.0-4.0 X 10^3 Monocytes # (Auto) 0.6 0.0-1.0 X 10^3 Eosinophils # (Auto) 0.7 H 0.0-0.3 10^3/uL Basophils # (Auto) 0.1 0.0-0.1 10^3/uL Prothrombin Time 13.8 12.2-14.7 SEC INR Comment 1.0 0.8-1.4 Activated Partial Thromboplast Time 28 24-35 SEC Sodium Level 145 135-145 MMOL/L Potassium Level 3.5 L 3.6-5.0 MMOL/L Chloride Level 111 H 98-107 MMOL/L Carbon Dioxide Level 24 21-32 MMOL/L Anion Gap 10 5-14 MMOL/L Blood Urea Nitrogen 29 H 7-18 MG/DL Creatinine 0.75 0.60-1.30 MG/DL Estimat Glomerular Filtration Rate > 60 BUN/Creatinine Ratio 39 Glucose Level 134 H 70-105 MG/DL Lactic Acid Level 1.35 0.50-2.00 MMOL/L Calcium Level 9.6 8.5-10.1 MG/DL Corrected Calcium 10.0 8.5-10.1 MG/DL Total Bilirubin 0.3 0.1-1.0 MG/DL Aspartate Amino Transf (AST/SGOT) 11 5-34 U/L Alanine Aminotransferase (ALT/SGPT) 13 0-55 U/L Alkaline Phosphatase 64 40-136 U/L Total Protein 6.8 6.4-8.2 GM/DL Albumin 3.5 3.2-4.5 GM/DL Blood Gas Puncture Site RIGHT RADIAL Blood Gas Patient Temperature 97.8 Arterial Blood pH 7.43 7.37-7.43 Arterial Blood Partial Pressure CO2 36 35-45 MMHG Arterial Blood Partial Pressure O2 55 L 79-93 MMHG Arterial Blood HCO3 24 23-27 MMOL/L Arterial Blood Total CO2 25.0 21.0-31.0 MMOL/L Arterial Blood Oxygen Saturation 90 L 94-100 % Arterial Blood Base Excess 0.0 -2.5-2.5 MMOL/L Miguel Test YES-POS Blood Gas Ventilator Setting NO Blood Gas Inspired Oxygen 2L (ISRAEL QUEEN APRN) Vital Signs/I&O Capillary Refill : (CHARLIE VELEZ) Progress Note : Time: 21:22 Progress Note The patient's blood pressure is around 80/60 so we reclined him into Trendelenburg which brought him up to about 100/80 but were going to give him a 30 mL/kg fluid bolus and anticipate a central line since he has poor access. We put a Perera catheter and so we can monitor his hemodynamic status and fluid intake output. Plan to give him Rocephin and azithromycin. Anticipated diagnosis septic shock probably pneumonia since he is hypoxic. No evidence of a DVT. No history given of pulmonary embolisms or reasons he would have a PE other than he is obviously bedbound with contractures. (CHARLIE VELEZ) Diagnostic Imaging Diagonstic Imaging: Xray Plain Films/CT/US/NM/MRI: chest (1v) Comments NAME: TYLER [facility]LIN [facility] REC#: [id number] PHYSICIAN: CHARLIE VELEZ MD CC: MARY JO AREVALO MD; CHARLIE VELEZ Page 1 of 1 RADIOLOGY REPORT [facility] [place] [place] CC: MARY JO AREVALO MD; CHARLIE VELEZ Page 1 of 1 RADIOLOGY REPORT NAME: TYLER CARLIN [facility] REC#: [id number] PT STATUS: REG ER : 1960 PHYSICIAN: CHARLIE VELEZ MD ADMIT DATE: 11/17/18/ER Signed Date of Exam: 11/17/18 CHEST 1 VIEW, AP/PA ONLY INDICATION: Central venous catheter evaluation Semiupright portable AP view of the chest is obtained. There is no previous study for comparison. Left jugular central venous catheter reaches the upper superior vena cava. There is no evidence of pneumothorax. There is dense consolidation in the right parahilar and basilar regions most compatible with lower lobe pneumonia. Left lung appears clear. IMPRESSION: Findings are compatible with right lower lobe pneumonia without evidence of complication related to left jugular central venous catheter. Dictated by: Dictated on workstation # [id number] Dict: 11/17/182209 Trans: 05/04/19 2213 Interpreted by: MARY JO AREVALO MD Electronically signed by: MARY JO AREVALO MD 11/17/18 221 Reviewed: Reviewed by Me (CHARLIE VELEZ) Departure Communication (Admissions) Time/Spoke to Admitting Phy: 00:40 Discussed case lab imaging findings with Dr. Lamas she agrees with placing the patient in the ICU overnight, antibiotics fluids. (CHARLIE VELEZ) Impression Primary Impression: Pneumonia Qualified Codes: J18.1 - Lobar pneumonia, unspecified organism Additional Impression: Sepsis Qualified Codes: A41.9 - Sepsis, unspecified organism Disposition: ADMITTED INPATIENT Condition: Stable Admissions Decision to Admit Reason: Admit from ER (General) Decision to Admit/Date: November 17, 2018 Time/Decision to Admit Time: 23:33 (CHARLIE VELEZ) Departure-Patient Inst. Referrals: NICK JIAMES MD (PCP) Primary Care Physician CHARLIE VELEZ November 17, 2018 21:23 ISRAEL QUEEN APRN November 17, 2018 22:01
[2018-11-17 21:25] LABS: BASOPHILS # (AUTO) 0.1 10^3/uL (0.0-0.1); BASOPHILS % (AUTO) 1 % (0-10); EOSINOPHILS # (AUTO) 0.7 10^3/uL (0.0-0.3); EOSINOPHILS % (AUTO) 6 % (0-10); HEMATOCRIT 42 % (40-54); HEMOGLOBIN 13.4 G/DL (13.3-17.7); LYMPHOCYTES # (AUTO) 1.9 X 10^3 (1.0-4.0); LYMPHOCYTES % (AUTO) 15 % (12-44); MEAN CORPUSCULAR HEMOGLOBIN 28 PG (25-34); MEAN CORPUSCULAR HGB CONC 32 G/DL (32-36); MEAN CORPUSCULAR VOLUME 88 FL (80-99); MEAN PLATELET VOLUME 10.1 FL (7.4-10.4); MONOCYTES # (AUTO) 0.6 X 10^3 (0.0-1.0); MONOCYTES % (AUTO) 5 % (0-12); NEUTROPHILS # (AUTO) 9.1 X 10^3 (1.8-7.8); NEUTROPHILS % (AUTO) 74 % (42-75); PLATELET COUNT 319 10^3/uL (130-400); RED CELL DISTRIBUTION WIDTH 15.7 % (10.0-14.5); WHITE BLOOD COUNT 12.3 10^3/uL (4.3-11.0)
[2018-11-17 21:26] LABS: ABG OXYGEN SATURATION 90 % (94-100); ABG PCO2 36 MMHG (35-45); ABG PH 7.43 (7.37-7.43); ABG PO2 55 MMHG (79-93); ALLENS TEST YES-POS; INSPIRED O2 2L; PATIENT TEMP 97.8; VENTILATOR NO
[2018-11-17 21:41] LABS: PROTHROMBIN TIME PATIENT 13.8 SEC (12.2-14.7)
[2018-11-17 21:50] LABS: ALANINE AMINOTRANSFERASE 13 U/L (0-55); ALBUMIN 3.5 GM/DL (3.2-4.5); ALKALINE PHOSPHATASE 64 U/L (40-136); BILIRUBIN,TOTAL 0.3 MG/DL (0.1-1.0); BUN/CREATININE RATIO 39; CALCIUM 9.6 MG/DL (8.5-10.1); CARBON DIOXIDE 24 MMOL/L (21-32); CHLORIDE 111 MMOL/L (98-107); CREATININE SERUM 0.75 MG/DL (0.60-1.30); GFR ESTIMATED > 60; GLUCOSE 134 MG/DL (70-105); POTASSIUM 3.5 MMOL/L (3.6-5.0); SODIUM 145 MMOL/L (135-145); TOTAL PROTEIN 6.8 GM/DL (6.4-8.2)
--- NOTE | 2018-11-17 22:15 | Diagnostic Imaging Report ---
INDICATION: Central venous catheter evaluation Semiupright portable AP view of the chest is obtained. There is no previous study for comparison. Left jugular central venous catheter reaches the upper superior vena cava. There is no evidence of pneumothorax. There is dense consolidation in the right parahilar and basilar regions most compatible with lower lobe pneumonia. Left lung appears clear. IMPRESSION: Findings are compatible with right lower lobe pneumonia without evidence of complication related to left jugular central venous catheter. Dictated by: Dictated on workstation # [id number]
[2018-11-17 22:58] LABS: BILIRUBIN,URINE NEGATIVE (NEGATIVE); CLARITY,URINE CLEAR; COLOR,URINE YELLOW; GLUCOSE, URINE (UA) NEGATIVE (NEGATIVE); KETONES,URINE NEGATIVE (NEGATIVE); LEUKOCYTE ESTERASE ,URINE NEGATIVE (NEGATIVE); NITRITE,URINE NEGATIVE (NEGATIVE); PH,URINE 5 (5-9); PROTEIN,URINE 1+ (NEGATIVE); UROBILINOGEN,URINE NORMAL (NORMAL)
[2018-11-17 23:01] LABS: BACTERIA,URINE NEGATIVE /HPF; RBC,URINE 0-2 /HPF; SQUAMOUS EPITHELIAL CELL,UR 0-2 /HPF
[2018-11-18] VITALS (17 sets, daily range): BP systolic 81–125; BP diastolic 55–80
[2018-11-18] MEDS ORDERED: MIRTAZAPINE 15 MG (00:49)
[2018-11-18] MEDS ORDERED: COLACE 100 MG (00:49)
[2018-11-18] MEDS ORDERED: ASPIRIN 81 MG (00:49)
[2018-11-18] MEDS ORDERED: POLYETHYLENE GLYCOL (00:49)
[2018-11-18] MEDS ORDERED: ATORVASTATIN 20 MG (00:49)
[2018-11-18] MEDS ORDERED: ZANTAC 150 MG (00:49)
--- OUTSIDE RECORDS SUMMARY | 2018-11-18 01:17 | XMS REPORT | Continuity of Care Document ---
Author Organization Unknown Address Unknown Allergies Active Description Code Type Severity Reaction Onset Reported/Identified Relationship to Patient Clinical Status Yes TETRACYCLINE UNKNOWN UNKNOWN Yes Tetracycline [id number] Drug Allergy Unknown Unknown 05/05/2016 Yes MS - Tetracycline [id number] Drug Allergy Unknown Unknown 2015 Yes Tetracycline [id number] Drug Allergy Unknown Unknown 05/05/2016 Yes tetracycline [id number] Drug Allergy Unknown N/A 10/09/2017 Yes tetracycline [id number] Drug Allergy Unknown N/A 10/09/2017 Medications Medication [...] RAY FLEMING Z88.8 05/24/2016 ERWIN, WAQAS K CHANNEL SPECIALIST Other R13.10 05/27/2016 ERWIN, WAQAS K CHANNEL SPECIALIST Other R13.10 10/20/2016 SHORT, BROOKE N CHANNEL SPECIALIST Other E78.5 10/26/2016 SHORT, BROOKE N CHANNEL SPECIALIST Other E78.5 11/09/2016 SHORT, BROOKE N CHANNEL SPECIALIST Other E78.5 09/04/2017 DARIEN WINTER, MICA K Other S00.81XA 09/04/2017 DARIEN WINTER, MICA K Other W05.0XXA 09/04/2017 DARIEN WINTER, MICA K Other Z79.02 09/04/2017 DARIEN WINTER, MICA K Other Z79.899 09/04/2017 DARIEN WINTER, MICA K Other Z88.1 09/04/2017 DARIEN WINTER, MICA K Other Z91.81 09/28/2017 SHORT, BROOKE N CHANNEL SPECIALIST Other L89.892 10/02/2017 SHORT, BROOKE N CHANNEL SPECIALIST Other F79 10/02/2017 SHORT, BROOKE N CHANNEL SPECIALIST Other H91.3 10/02/2017 SHORT, BROOKE N CHANNEL SPECIALIST Other L89.892 10/02/2017 SHORT, BROOKE N CHANNEL SPECIALIST Other Z79.51 10/02/2017 SHORT, BROOKE N CHANNEL SPECIALIST Other Z79.82 10/02/2017 SHORT, BROOKE N CHANNEL SPECIALIST Other Z79.899 10/02/2017 SHORT, BROOKE N CHANNEL SPECIALIST Other Z88.3 10/05/2017 SHORT, BROOKE N CHANNEL SPECIALIST Other L97.329 10/05/2017 SHORT, BROOKE N CHANNEL SPECIALIST Other L89.891 10/05/2017 SHORT, BROOKE N CHANNEL SPECIALIST Other L89.892 10/09/2017 SHAFEI, MOHEDINE Other F84.0 10/09/2017 SHAFEI, MOHEDINE Other F88 10/09/2017 SHAFEI, MOHEDINE Other R29.6 10/09/2017 SHAFEI, MOHEDINE Other W05.0XXA 10/09/2017 SHAFEI, MOHEDINE Other Z04.3 10/09/2017 SHAFEI, MOHEDINE Other Z79.82 10/09/2017 SHAFEI, MOHEDINE Other Z79.899 10/09/2017 SHAFEI, MOHEDINE Other Z88.1 10/09/2017 SHAFEI, MOHEDINE Other Z88.3 10/09/2017 SHAFEI, MOHEDINE Other Z91.81 10/09/2017 SHAFEI, MOHEDINE Other Z99.3 10/20/2017 SHORT, BROOKE N CHANNEL SPECIALIST Other L89.892 10/20/2017 SHORT, BROOKE N CHANNEL SPECIALIST Other Z79.51 10/20/2017 SHORT, BROOKE N CHANNEL SPECIALIST Other Z79.82 10/20/2017 SHORT, BROOKE N CHANNEL SPECIALIST Other Z79.899 10/20/2017 SHORT, BROOKE N CHANNEL SPECIALIST Other Z88.3 10/20/2017 SHORT, BROOKE N CHANNEL SPECIALIST Other F79 10/20/2017 SHORT, BROOKE N CHANNEL SPECIALIST Other H91.3 10/20/2017 SHORT, BROOKE N CHANNEL SPECIALIST Other L89.892 10/20/2017 SHORT, BROOKE N CHANNEL SPECIALIST Other Z79.51 10/20/2017 SHORT, BROOKE N CHANNEL SPECIALIST Other Z79.82 10/20/2017 SHORT, BROOKE N CHANNEL SPECIALIST Other Z79.899 10/20/2017 SHORT, BROOKE N CHANNEL SPECIALIST Other Z88.3 10/20/2017 SHORT, BROOKE N CHANNEL SPECIALIST Other L89.892 10/20/2017 SHORT, BROOKE N CHANNEL SPECIALIST Other Z79.51 10/20/2017 SHORT, BROOKE N CHANNEL SPECIALIST Other Z79.82 10/20/2017 SHORT, BROOKE N CHANNEL SPECIALIST Other Z79.899 10/20/2017 SHORT, BROOKE N CHANNEL SPECIALIST Other Z88.3 10/20/2017 SHORT, BROOKE N CHANNEL SPECIALIST Other L89.891 10/20/2017 SHORT, BROOKE N CHANNEL SPECIALIST Other L89.892 10/20/2017 SHORT, BROOKE N CHANNEL SPECIALIST Other L89.890 10/20/2017 SHORT, BROOKE N CHANNEL SPECIALIST Other Z79.51 10/20/2017 SHORT, BROOKE N CHANNEL SPECIALIST Other Z79.82 10/20/2017 SHORT, BROOKE N CHANNEL SPECIALIST Other Z79.899 10/20/2017 SHORT, BROOKE N CHANNEL SPECIALIST Other Z88.3 10/21/2017 SHORT, BROOKE N CHANNEL SPECIALIST Other L89.892 10/21/2017 SHORT, BROOKE N CHANNEL SPECIALIST Other Z79.51 10/21/2017 SHORT, BROOKE N CHANNEL SPECIALIST Other Z79.82 10/21/2017 SHORT, BROOKE N CHANNEL SPECIALIST Other Z79.899 10/21/2017 SHORT, BROOKE N CHANNEL SPECIALIST Other Z88.3 10/21/2017 SHORT, BROOKE N CHANNEL SPECIALIST Other L89.892 10/21/2017 SHORT, BROOKE N CHANNEL SPECIALIST Other Z79.51 10/21/2017 SHORT, BROOKE N CHANNEL SPECIALIST Other Z79.82 10/21/2017 SHORT, BROOKE N CHANNEL SPECIALIST Other Z79.899 10/21/2017 SHORT, BROOKE N CHANNEL SPECIALIST Other Z88.3 10/21/2017 DAMARIS WINTER, MARS Gibson [...] Gibson Other Z88.3 10/21/2017 SHORT, BROOKE N CHANNEL SPECIALIST Other L89.890 10/21/2017 SHORT, BROOKE N CHANNEL SPECIALIST Other S91.205A 10/21/2017 SHORT, BROOKE N CHANNEL SPECIALIST Other X58.XXXA 10/21/2017 SHORT, BROOKE N CHANNEL SPECIALIST Other L89.890 10/21/2017 SHORT, BROOKE N CHANNEL SPECIALIST Other S91.205A 10/21/2017 SHORT, BROOKE N CHANNEL SPECIALIST Other X58.XXXA 10/23/2017 SHORT, BROOKE N CHANNEL SPECIALIST Other L89.890 10/23/2017 SHORT, BROOKE N CHANNEL SPECIALIST Other Z79.51 10/23/2017 SHORT, BROOKE N CHANNEL SPECIALIST Other Z79.82 10/23/2017 SHORT, BROOKE N CHANNEL SPECIALIST Other Z79.899 10/23/2017 SHORT, BROOKE N CHANNEL SPECIALIST Other Z88.3 10/23/2017 SHORT, BROOKE N CHANNEL SPECIALIST Other L89.890 10/23/2017 SHORT, BROOKE N CHANNEL SPECIALIST Other Z79.51 10/23/2017 SHORT, BROOKE N CHANNEL SPECIALIST Other Z79.82 10/23/2017 SHORT, BROOKE N CHANNEL SPECIALIST Other Z79.899 10/23/2017 SHORT, BROOKE N CHANNEL SPECIALIST Other Z88.3 10/23/2017 SHORT, BROOKE N CHANNEL SPECIALIST Other F79 10/23/2017 SHORT, BROOKE N CHANNEL SPECIALIST Other H91.3 10/23/2017 SHORT, BROOKE N CHANNEL SPECIALIST Other L89.892 10/23/2017 SHORT, BROOKE N CHANNEL SPECIALIST Other Z79.51 10/23/2017 SHORT, BROOKE N CHANNEL SPECIALIST Other Z79.82 10/23/2017 SHORT, BROOKE N CHANNEL SPECIALIST Other Z79.899 10/23/2017 SHORT, BROOKE N CHANNEL SPECIALIST Other Z88.3 10/23/2017 SHORT, BROOKE N CHANNEL SPECIALIST Other L89.890 10/23/2017 SHORT, BROOKE N CHANNEL SPECIALIST Other Z79.51 10/23/2017 SHORT, BROOKE N CHANNEL SPECIALIST Other Z79.82 10/23/2017 SHORT, BROOKE N CHANNEL SPECIALIST Other Z79.899 10/23/2017 SHORT, BROOKE N CHANNEL SPECIALIST Other Z88.3 10/23/2017 SHORT, BROOKE N CHANNEL SPECIALIST Other L89.890 10/23/2017 SHORT, BROOKE N CHANNEL SPECIALIST Other Z79.51 10/23/2017 SHORT, BROOKE N CHANNEL SPECIALIST Other Z79.82 10/23/2017 SHORT, BROOKE N CHANNEL SPECIALIST Other Z79.899 10/23/2017 SHORT, BROOKE N CHANNEL SPECIALIST Other Z88.3 10/23/2017 SHORT, BROOKE N CHANNEL SPECIALIST Other L89.892 10/23/2017 SHORT, BROOKE N CHANNEL SPECIALIST Other Z79.51 10/23/2017 SHORT, BROOKE N CHANNEL SPECIALIST Other Z79.82 10/23/2017 SHORT, BROOKE N CHANNEL SPECIALIST Other Z79.899 10/23/2017 SHORT, BROOKE N CHANNEL SPECIALIST Other Z88.3 10/23/2017 DAMARIS WINTER, MARS Gibson Other F72 10/23/2017 DAMARIS WINTER, MARS Gibson Other L89.891 10/23/2017 DAMARIS WINTER, MARS Gibson Other L89.892 10/23/2017 DAMARIS WINTER, MARS Gibson Other M21.372 10/23/2017 DAMARIS WINTER, MARS Gibson Other Z79.51 10/23/2017 DAMARIS WINTER, MARS Gibson Other Z79.82 10/23/2017 DAMARIS WINTER, MARS Gibson Other Z79.899 10/23/2017 DAMARIS WINTER, MARS Gibson Other Z88.3 10/23/2017 SHORT, BROOKE N CHANNEL SPECIALIST Other L89.891 10/23/2017 SHORT, BROOKE N CHANNEL SPECIALIST Other L89.892 10/23/2017 SHORT, BROOKE N CHANNEL SPECIALIST Other M79.604 10/23/2017 SHORT, BROOKE N CHANNEL SPECIALIST Other M79.605 10/23/2017 DAMARIS WINTER, MARS Gibson Other F72 10/23/2017 DAMARIS WINTER, MARS Gibson Other L89.890 10/23/2017 DAMARIS WINTER, MARS Gibson Other Z79.51 10/23/2017 DAMARIS WINTER, MARS Gibson Other Z79.82 10/23/2017 DAMARIS WINTER, MARS Gibson Other Z79.899 10/23/2017 DAMARIS WINTER, MARS Gibson Other Z88.3 10/23/2017 SHORT, BROOKE N CHANNEL SPECIALIST Other L89.890 10/23/2017 SHORT, BROOKE N CHANNEL SPECIALIST Other S91.205A 10/23/2017 SHORT, BROOKE N CHANNEL SPECIALIST Other X58.XXXA 10/24/2017 SHORT, BROOKE N CHANNEL SPECIALIST Other F79 10/24/2017 SHORT, BOROKE N CHANNEL SPECIALIST Other H91.3 10/24/2017 SHORT, BROOKE N CHANNEL SPECIALIST Other L89.892 10/24/2017 SHORT, BROOKE N CHANNEL SPECIALIST Other Z79.51 10/24/2017 SHORT, BROOKE N CHANNEL SPECIALIST Other Z79.82 10/24/2017 SHORT, BROOKE N CHANNEL SPECIALIST Other Z79.899 10/24/2017 SHORT, BROOKE N CHANNEL SPECIALIST Other Z88.3 10/24/2017 SHORT, BROOKE N CHANNEL SPECIALIST Other L89.890 10/24/2017 SHORT, BROOKE N CHANNEL SPECIALIST Other Z79.51 10/24/2017 SHORT, BROOKE N CHANNEL SPECIALIST Other Z79.82 10/24/2017 SHORT, BROOKE N CHANNEL SPECIALIST Other Z79.899 10/24/2017 SHORT, BROOKE N CHANNEL SPECIALIST Other Z88.3 10/24/2017 SHORT, BROOKE N CHANNEL SPECIALIST Other L89.890 10/24/2017 SHORT, BROOKE N CHANNEL SPECIALIST Other Z79.51 10/24/2017 SHORT, BROOKE N CHANNEL SPECIALIST Other Z79.82 10/24/2017 SHORT, BROOKE N CHANNEL SPECIALIST Other Z79.899 10/24/2017 SHORT, BROOKE N CHANNEL SPECIALIST Other Z88.3 10/24/2017 SHORT, BROOKE N CHANNEL SPECIALIST Other L89.892 10/24/2017 SHORT, BROOKE N CHANNEL SPECIALIST Other Z79.51 10/24/2017 SHORT, BROOKE N CHANNEL SPECIALIST Other Z79.82 10/24/2017 SHORT, BROOKE N CHANNEL SPECIALIST Other Z79.899 10/24/2017 SHORT, BROOKE N CHANNEL SPECIALIST Other Z88.3 10/24/2017 DAMARIS WINTER, NATHAN Other F72 10/24/2017 DAMARIS WINTER, NATHAN Other L89.891 10/24/2017 DAMARIS WINTER, NATHAN Other L89.892 10/24/2017 DAMARIS WINTER, NATHAN Other M21.372 10/24/2017 DAMARIS WINTER, NATHAN Other Z79.51 10/24/2017 DAMARIS WINTER, NATHAN Other Z79.82 10/24/2017 DAMARIS WINTER, NATHAN Other Z79.899 10/24/2017 DAMARIS WINTER, NATHAN Other Z88.3 10/24/2017 SHORT, BROOKE N CHANNEL SPECIALIST Other L89.891 10/24/2017 SHORT, BROOKE N CHANNEL SPECIALIST Other L89.892 10/24/2017 SHORT, BROOKE N CHANNEL SPECIALIST Other M79.604 10/24/2017 SHORT, BROOKE N CHANNEL SPECIALIST Other M79.605 10/24/2017 DAMARIS WINTER, NATHAN Other F72 10/24/2017 DAMARIS WINTER, MARS Gibson Other L89.890 10/24/2017 DAMARIS WINTER, MARS Gibson Other Z79.51 10/24/2017 DAMARIS WINTER, MARS Gibson Other Z79.82 10/24/2017 DAMARIS WINTER, MARS Gibson Other Z79.899 10/24/2017 DAMARIS WINTER, MARS Gibson Other Z88.3 10/24/2017 SHORT, BROOKE N CHANNEL SPECIALIST Other L89.890 10/24/2017 SHORT, BROOKE N CHANNEL SPECIALIST Other S91.205A 10/24/2017 SHORT, BROOKE N CHANNEL SPECIALIST Other X58.XXXA 10/25/2017 SHORT, BROOKE N CHANNEL SPECIALIST Other L89.892 10/25/2017 SHORT, BROOKE N CHANNEL SPECIALIST Other Z79.51 10/25/2017 SHORT, BROOKE N CHANNEL SPECIALIST Other Z79.82 10/25/2017 SHORT, BROOKE N CHANNEL SPECIALIST Other Z79.899 10/25/2017 SHORT, BROOKE N CHANNEL SPECIALIST Other Z88.3 10/25/2017 SHORT, BROOKE N CHANNEL SPECIALIST Other L89.892 10/25/2017 SHORT, BROOKE N CHANNEL SPECIALIST Other Z79.51 10/25/2017 SHORT, BROOKE N CHANNEL SPECIALIST Other Z79.82 10/25/2017 SHORT, BROOKE N CHANNEL SPECIALIST Other Z79.899 10/25/2017 SHORT, BROOKE N CHANNEL SPECIALIST Other Z88.3 10/25/2017 DAMARIS WINTER, MARS Gibson [...] NATHAN Other Z88.3 10/26/2017 SHORT, BROOKE N CHANNEL SPECIALIST Other F79 10/26/2017 SHORT, BROOKE N CHANNEL SPECIALIST Other H91.3 10/26/2017 SHORT, BROOKE N CHANNEL SPECIALIST Other L89.892 10/26/2017 SHORT, BROOKE N CHANNEL SPECIALIST Other Z79.51 10/26/2017 SHORT, BROOKE N CHANNEL SPECIALIST Other Z79.82 10/26/2017 SHORT, BROOKE N CHANNEL SPECIALIST Other Z79.899 10/26/2017 SHORT, BROOKE N CHANNEL SPECIALIST Other Z88.3 10/26/2017 SHORT, BROOKE N CHANNEL SPECIALIST Other L89.890 10/26/2017 SHORT, BROOKE N CHANNEL SPECIALIST Other Z79.51 10/26/2017 SHORT, BROOKE N CHANNEL SPECIALIST Other Z79.82 10/26/2017 SHORT, BROOKE N CHANNEL SPECIALIST Other Z79.899 10/26/2017 SHORT, BROOKE N CHANNEL SPECIALIST Other Z88.3 10/26/2017 SHORT, BROOKE N CHANNEL SPECIALIST Other L89.890 10/26/2017 SHORT, BROOKE N CHANNEL SPECIALIST Other Z79.51 10/26/2017 SHORT, BROOKE N CHANNEL SPECIALIST Other Z79.82 10/26/2017 SHORT, BROOKE N CHANNEL SPECIALIST Other Z79.899 10/26/2017 SHORT, BROOKE N CHANNEL SPECIALIST Other Z88.3 10/26/2017 SHORT, BROOKE N CHANNEL SPECIALIST Other L89.892 10/26/2017 SHORT, BROOKE N CHANNEL SPECIALIST Other Z79.51 10/26/2017 SHORT, BROOKE N CHANNEL SPECIALIST Other Z79.82 10/26/2017 SHORT, BROOKE N CHANNEL SPECIALIST Other Z79.899 10/26/2017 SHORT, BROOKE N CHANNEL SPECIALIST Other Z88.3 10/26/2017 DAMARIS WINTER, NATHAN Other F72 10/26/2017 DAMARIS WINTER, NATHAN Other L89.891 10/26/2017 DAMARIS WINTER, NATHAN Other L89.892 10/26/2017 DAMARIS WINTER, NATHAN Other M21.372 10/26/2017 DAMARIS WINTER, NATHAN Other Z79.51 10/26/2017 DAMARIS WINTER, NATHAN Other Z79.82 10/26/2017 DAMARIS WINTER, MARS Gibson Other Z79.899 10/26/2017 DAMARIS WINTER, MARS Gibson Other Z88.3 10/26/2017 SHORT, BROOKE N CHANNEL SPECIALIST Other L89.891 10/26/2017 SHORT, BROOKE N CHANNEL SPECIALIST Other L89.892 10/26/2017 SHORT, BROOKE N CHANNEL SPECIALIST Other M79.604 10/26/2017 SHORT, BROOKE N CHANNEL SPECIALIST Other M79.605 10/26/2017 DAMARIS WINTER, MARS Gibson Other F72 10/26/2017 DAMARIS WINTER, MARS Gibson Other L89.890 10/26/2017 DAMARIS WINTER, MARS Gibson Other Z79.51 10/26/2017 DAMARIS WINTER, MARS Gibson Other Z79.82 10/26/2017 DAMARIS WINTER, MARS Gibson Other Z79.899 10/26/2017 DAMARIS WINTER, MARS Gibson Other Z88.3 10/26/2017 SHORT, BROOKE N CHANNEL SPECIALIST Other L89.890 10/26/2017 SHORT, BROOKE N CHANNEL SPECIALIST Other S91.205A 10/26/2017 SHORT, BROOKE N CHANNEL SPECIALIST Other X58.XXXA 10/26/2017 SHORT, BROOKE N CHANNEL SPECIALIST Other L89.890 10/26/2017 SHORT, BROOKE N CHANNEL SPECIALIST Other S91.205A 10/26/2017 SHORT, BROOKE N CHANNEL SPECIALIST Other X58.XXXA 10/30/2017 SHORT, BROOKE N CHANNEL SPECIALIST Other L89.891 10/30/2017 SHORT, BROOKE N CHANNEL SPECIALIST Other L89.892 10/30/2017 SHORT, BROOKE N CHANNEL SPECIALIST Other Z79.82 10/30/2017 SHORT, BROOKE N CHANNEL SPECIALIST Other Z79.899 11/21/2017 SHORT, BROOKE N CHANNEL SPECIALIST Other F72 11/21/2017 SHORT, BROOKE N CHANNEL SPECIALIST Other H91.3 11/21/2017 SHORT, BROOKE N CHANNEL SPECIALIST Other L89.891 11/21/2017 SHORT, BROOKE N CHANNEL SPECIALIST Other L89.892 11/21/2017 SHORT, BROOKE N CHANNEL SPECIALIST Other Z79.51 11/21/2017 SHORT, BROOKE N CHANNEL SPECIALIST Other Z79.82 11/21/2017 SHORT, BROOKE N CHANNEL SPECIALIST Other Z79.899 11/21/2017 SHORT, BROOKE N CHANNEL SPECIALIST Other Z88.3 11/27/2017 SHORT, BROOKE N CHANNEL SPECIALIST Other F72 11/27/2017 SHORT, BROOKE N CHANNEL SPECIALIST Other H91.3 11/27/2017 SHORT, BROOKE N CHANNEL SPECIALIST Other L89.891 11/27/2017 SHORT, BROOKE N CHANNEL SPECIALIST Other L89.892 11/27/2017 SHORT, BROOKE N CHANNEL SPECIALIST Other Z79.51 11/27/2017 SHORT, BROOKE N CHANNEL SPECIALIST Other Z79.82 11/27/2017 SHORT, BROOKE N CHANNEL SPECIALIST Other Z79.899 11/27/2017 SHORT, BROOKE N CHANNEL SPECIALIST Other Z88.3 07/03/2018 JAIMES, NICK A 276.0 [...] Status Pt. Type Provider Facility Loc./Unit Complaint [id number] 11/16/2017 13:00:00 11/16/2017 23:59:59 CLS Preadmit BROOKE DUMONT [facility]01 [id number] 10/26/2017 14:27:00 10/26/2017 23:59:59 CLS Outpatient BROOKE DUMONT [facility]01 [id number] 10/24/2017 12:06:00 10/24/2017 23:59:59 CLS Outpatient BROOKE DUMONT [facility] OPD [id number] 10/20/2017 08:01:00 10/20/2017 23:59:59 CLS Outpatient BROOKE DUMONT [facility]01 [id number] 10/10/2017 12:55:00 10/10/2017 23:59:59 CLS Outpatient MARS OCAMPO MD [facility]01 [id number] 10/09/2017 15:40:00 10/09/2017 18:06:00 DIS Emergency RAY FLEMING [facility] ER [id number] 09/29/2017 11:04:00 09/29/2017 23:59:59 CLS Outpatient MARS OCAMPO MD [facility]01 [id number] 09/29/2017 09:38:00 09/29/2017 23:59:59 CLS Outpatient BROOKE DUMONT [facility] OPD [id number] 09/27/2017 08:22:00 09/27/2017 23:59:59 CLS Outpatient BROOKE DUMONT [facility] WCC01 [id number] 09/22/2017 08:47:00 09/22/2017 23:59:59 CLS Outpatient BROOKE DUMONT [facility] WC01 [id number] 09/15/2017 08:56:00 09/15/2017 23:59:59 CLS Outpatient BROOKE DUMONT [facility] WC01 [id number] 09/04/2017 10:13:00 09/04/2017 12:21:00 DIS Emergency MICA LEDEZMA MD [facility] ER [id number] 09/01/2017 10:21:00 09/01/2017 23:59:59 CLS Outpatient BROOKE DUMONT [facility] WC01 [id number] 11/09/2016 07:45:00 11/09/2016 09:11:00 DIS Emergency LONNIE [facility] ER [id number] 10/20/2016 07:56:00 10/20/2016 23:59:59 CLS Outpatient BROOKE DUMONT [facility] OPD [id number] 05/24/2016 09:16:00 05/24/2016 23:59:59 CLS Outpatient WAQAS HOOD [facility] OPD [id number] 04/26/2016 10:49:00 04/26/2016 12:57:00 DIS Emergency LONNIE [facility] ER [id number] 03/23/2016 11:12:00 03/23/2016 12:51:00 DIS Emergency LONNIE [facility] ER [id number] 11/30/2015 11:29:00 11/30/2015 14:10:00 DIS Emergency JOHN ISLAS MD [facility] ER [id number] 11/03/2015 07:41:00 11/03/2015 23:59:59 CLS Outpatient KARI WINTER [facility] SPC [id number] 11/02/2015 07:50:00 11/02/2015 23:59:59 CLS Outpatient KARI WINTER [facility] OPD [id number] 05/29/2015 11:53:00 05/29/2015 23:59:59 CLS Outpatient KARI WINTER, CHRYSTAL Bonilla [facility] SPC [id number] 11/02/2017 18:00:36 ACT Document Registration [id number] 10/01/2018 10:46:00 10/01/2018 23:59:59 CLS Outpatient MILTON VELEZ MD [facility] [id number] 09/03/2018 10:35:00 09/03/2018 23:59:59 CLS Outpatient MILTON VELEZ MD [facility] [id number] 08/20/2018 11:02:00 08/20/2018 23:59:59 CLS Outpatient MILTON VELEZ MD [facility] [id number] 08/06/2018 13:54:00 08/06/2018 23:59:59 CLS Outpatient MILTON VELEZ MD [facility] [id number] 08/07/2017 13:30:00 08/07/2017 23:59:59 CLS Outpatient BROOKE DUMONT APRN [facility] [id number] 07/03/2018 14:14:00 07/04/2018 15:03:00 DIS Outpatient NICK JAIMES [facility] MED-SURG [id number] 07/03/2018 14:51:36 Document Registration
[2018-11-18] MEDS ORDERED: ONDANSETRON 4 MG/2 ML (SDV) Z0FRAN IV PRN (02:00)
[2018-11-18] MEDS ORDERED: NS IV ONE (02:00)
[2018-11-18] MEDS ORDERED: ACETAMINOPHEN 500 MG TAB (TYLENOL) PO PRN (02:00)
[2018-11-18] MEDS: NOREPINEPHRINE 4 MG in NS (IVPB) 250 ML IV SCH ×2 (02:29→11:24)
[2018-11-18] MEDS: 1/2 NS W/KCL 20 MEQ/L 1,000 ML IV SCH ×4 (02:30→21:50)
[2018-11-18] MEDS: NS IV 1000 ML 1,000 ML IV SCH ×3 (02:30→11:24)
[2018-11-18 03:51] LABS: BASOPHILS % (AUTO) 0 % (0-10); EOSINOPHILS # (AUTO) 0.1 10^3/uL (0.0-0.3); EOSINOPHILS % (AUTO) 1 % (0-10); HEMATOCRIT 38 % (40-54); HEMOGLOBIN 11.8 G/DL (13.3-17.7); LYMPHOCYTES # (AUTO) 0.5 X 10^3 (1.0-4.0); LYMPHOCYTES % (AUTO) 4 % (12-44); MEAN CORPUSCULAR HEMOGLOBIN 28 PG (25-34); MEAN CORPUSCULAR HGB CONC 31 G/DL (32-36); MEAN CORPUSCULAR VOLUME 88 FL (80-99); MEAN PLATELET VOLUME 10.5 FL (7.4-10.4); MONOCYTES # (AUTO) 0.4 X 10^3 (0.0-1.0); MONOCYTES % (AUTO) 3 % (0-12); NEUTROPHILS # (AUTO) 13.4 X 10^3 (1.8-7.8); NEUTROPHILS % (AUTO) 93 % (42-75); PLATELET COUNT 216 10^3/uL (130-400); RED CELL DISTRIBUTION WIDTH 15.4 % (10.0-14.5); WHITE BLOOD COUNT 14.4 10^3/uL (4.3-11.0)
[2018-11-18 04:21] LABS: BUN/CREATININE RATIO 31; CALCIUM 8.9 MG/DL (8.5-10.1); CARBON DIOXIDE 24 MMOL/L (21-32); CHLORIDE 112 MMOL/L (98-107); CREATININE SERUM 0.64 MG/DL (0.60-1.30); GFR ESTIMATED > 60; GLUCOSE 92 MG/DL (70-105); MAGNESIUM 1.5 MG/DL (1.8-2.4); PHOSPHORUS 3.4 MG/DL (2.3-4.7); POTASSIUM 3.7 MMOL/L (3.6-5.0); SODIUM 144 MMOL/L (135-145)
[2018-11-18] MEDS: MAGNESIUM 1 GM/100 ML IVPB 100 ML IV SCH ×2 (04:59→06:12)
[2018-11-18] MEDS ORDERED: KCL 20 MEQ TAB (K-DUR) PO SCH (06:00)
[2018-11-18] MEDS ORDERED: POTASSIUM CL 10MEQ/50ML IVPB 50 ML IV SCH (06:00)
[2018-11-18] MEDS ORDERED: MAGNESIUM 1 GM/100 ML IVPB 100 ML IV SCH (06:00)
[2018-11-18] MEDS: RT-ALBUTEROL/IPRATROPIUM 3 ML (DUONEB) VIAL INH SCH ×5 (06:22→22:05)
[2018-11-18] MEDS: ASPIRIN 81 MG CHEW (CHILDREN'S ASA) PO SCH (11:19)
--- NOTE | 2018-11-18 11:31 | History & Physical-Hospitalist ---
History of Present Illness HPI/Chief Complaint This is a 58-year-old white male from [place] who has cerebral palsy and has been in the declining state of health for some time. He is both deaf and mute and non-ambulatory. He is been maintained on pured and thickened diet for some time. He be came ill having an elevated temperature and coughing and was transported and found to have a right lower lobe pneumonia. Most of the history is obtained from his sister and brother who has power of energy attorney. They request a DO NOT RESUSCITATE status and no aggressive measures other than antibiotics. Source: family Exam Limitations: clinical condition Date Seen 11/18/18 Time Seen by a Provider: 11:30 Attending Physician aLra Lamas MD PCP Diane Jaimes MD Referring Physician Date of Admission November 18, 2018 at 00:45 Home Medications & Allergies Home Medications Reviewed patient Home Medication Reconciliation performed by pharmacy medication reconciliations product development technician and/or nursing. Patients Allergies have been reviewed. Allergies Allergies Coded Allergies Tetracyclines (Verified Allergy, Unknown, 11/18/18) Past Ewavynq-Xenxry-Gofiwe Hx Past Med/Social Hx: Reviewed Nursing Past Med/Soc Hx Patient Social History Marrital Status: single Employed/Student: unemployed Alcohol Use: Denies Use Recreational Drug Use: No Smoking Status: Never a Smoker Recent Foreign Travel: No Contact w/other who traveled: No Recent Hopitalizations: No Recent Infectious Disease Expo: No Immunizations Up To Date Tetanus Booster (TDap): Unknown Seasonal Allergies Seasonal Allergies: No Past Medical History Surgeries: Tonsillectomy Cardiac: High Cholesterol Neurological: Cerebral Palsy Gastrointestinal: Gastroesophageal Reflux, Chronic Constipation Hearing Impairment: Deaf Review of Systems Constitutional: see HPI, weight loss EENTM: dental problems Respiratory: cough Musculoskeletal: other (Fractures) Skin: other (No breakdown) Physical Exam Physical Exam Vital Signs Vital Signs - First Documented Capillary Refill : Less Than 3 Seconds Height, Weight, BMI Height: 5'8.00" Weight: 135lbs. 6.0oz. 61.036476gn; 20.4 BMI Method:Stated General Appearance: Chronically ill, Thin HEENT: Other Neck: Limited Range of Motion Respiratory: Rales, Rhonci Cardiovascular: Tachycardia Gastrointestinal: Normal Bowel Sounds, Soft Rectal: Deferred Extremity: Other (And track sugars) Neurologic/Psychiatric: Disoriented Skin: Pallor Results Results/Procedures Labs Laboratory Tests 5/4/19 21:14 11/18/18 03:37 Patient resulted labs reviewed. Assessment/Plan Admission Diagnosis Right lower lobe pneumonia Cerebral palsy end-stage Probable aspiration and inability to protect his own airway Patient is DO NOT RESUSCITATE and DO NOT INTUBATE Admission Status: Inpatient Order (span 2 midnights) Reason for Inpatient Admission: Severe pneumonia and hypoxia in a immunocompromised patient Diagnosis/Problems Diagnosis/Problems (1) Sepsis Status: Acute Qualifiers: Sepsis type: sepsis due to unspecified organism Qualified Codes: A41.9 - Sepsis, unspecified organism (2) Respiratory failure, acute Status: Acute (3) Hypoxia (4) Pneumonia Status: Acute Qualifiers: Pneumonia type: due to unspecified organism Laterality: right Lung location: lower lobe of lung Qualified Codes: J18.1 - Lobar pneumonia, unspecified organism (5) Cerebral palsy Status: Chronic Clinical Quality Measures DVT/VTE Risk/Contraindication: Risk Factor Score Per Nursin RFS Level Per Nursing on Admit: 4+=Very High Copy Copies To 1: DIANE JAIMES MD, KATHLEEN M MD November 18, 2018 11:31
--- NOTE | 2018-11-18 12:30 | NUR ---
PT FIRST BP AFTER ARRIVING TO FLOOR 83/56. PASSED ON TO THIS RN IN REPORT THAT IS AWARE OF LOW BPs.
--- NOTE | 2018-11-18 12:30 | NUR ---
PT ARRIVED TO ROOM. THIS RN TO RESUME CARE. RN AGREES WITH PREVIOUS NURSES ASSESSMENT.
--- NOTE | 2018-11-18 12:34 | Diagnostic Imaging Report ---
EXAM: CHEST 1 VIEW, AP/PA ONLY INDICATION: Pneumonia. COMPARISON: Chest radiograph of 11/17/2018. FINDINGS: Dense consolidation in the right mid and lower lung. Normal heart size and central pulmonary vascularity. No pleural effusion or pneumothorax. Left IJ CVC tip upper SVC IMPRESSION: Dense consolidation in the right mid and lower lung has progressed since the prior exam. Dictated by: Dictated on workstation # [id number]
[2018-11-18] MEDS: morphine INJ 4 MG/ML 1 ML (VIAL/SYRINGE) IVP PRN ×3 (15:13→21:49)
[2018-11-18] MEDS ORDERED: AZITHROMYCIN INJECTION 500 MG in NS (IVPB) 250 ML IV SCH (21:00)
[2018-11-18] MEDS ORDERED: cefTRIAXone FOR IV USE 1,000 MG in WATER (STERILE) FOR INJECTION 10 ML IV SCH (21:00)
[2018-11-18] MEDS ORDERED: cefTRIAXone 1,000 MG IV (ROCEPHIN) VIAL ONE (21:01)
[2018-11-18] MEDS ORDERED: WATER (STERILE) FOR INJECTION 10 ML ONE (21:01)
[2018-11-19] MEDS: RT-ALBUTEROL/IPRATROPIUM 3 ML (DUONEB) VIAL INH SCH ×6 (01:56→22:06)
[2018-11-19 04:00] VITALS: BP 108/56
[2018-11-19] MEDS: 1/2 NS W/KCL 20 MEQ/L 1,000 ML IV SCH ×3 (04:41→17:36)
[2018-11-19] MEDS: ASPIRIN 81 MG CHEW (CHILDREN'S ASA) PO SCH (07:21)
--- NOTE | 2018-11-19 07:49 | Diagnostic Imaging Report ---
INDICATION: Pneumonia, sepsis. TECHNIQUE: Single view chest at 3:36 AM. CORRELATION STUDY: 11/18/2018 FINDINGS: Left-sided central line tip unchanged. Consolidation at the right mid to lower lung field persisting, stable to perhaps minimally improved. Left lung stable. Mediastinal structures unchanged. IMPRESSION: 1. Dense consolidation in the right mid to lower lung field persisting, may be slightly improved favoring probable pneumonia. Followup imaging to resolution. Dictated by: Dictated on workstation # [id number]
[2018-11-19 08:24] VITALS: BP 108/70
[2018-11-19] MEDS ORDERED: PIPERACILLIN/TAZO 4.5 GM/NS 100 ML IV NR ×2 (10:45)
[2018-11-19] MEDS ORDERED: MAGN400O7 PO (13:59)
[2018-11-19] MEDS ORDERED: DIPH25CA79 PO (13:59)
[2018-11-19] MEDS ORDERED: MENT71OI TP (13:59)
[2018-11-19] MEDS ORDERED: RANI150T90 PO (13:59)
[2018-11-19] MEDS ORDERED: ASPI-983 PO (13:59)
[2018-11-19] MEDS ORDERED: HYDR28.428 TP (13:59)
[2018-11-19] MEDS ORDERED: DEXT15SY8 PO (13:59)
[2018-11-19] MEDS ORDERED: MENT5LOZ3 MM (13:59)
[2018-11-19] MEDS ORDERED: LORA0.5T PO (13:59)
[2018-11-19] MEDS ORDERED: DOCU-143 PO (13:59)
[2018-11-19] MEDS ORDERED: BACL10TA PO (13:59)
[2018-11-19] MEDS ORDERED: LOPE-134 PO (13:59)
[2018-11-19] MEDS ORDERED: MIRT15TA6 PO (13:59)
[2018-11-19] MEDS ORDERED: NEOM28.410 TP (13:59)
[2018-11-19] MEDS ORDERED: POLY17PO6 PO (13:59)
[2018-11-19] MEDS ORDERED: CALC500T7 PO (13:59)
[2018-11-19] MEDS ORDERED: ATOR20TA49 PO (13:59)
[2018-11-19] MEDS ORDERED: IBUP-30 PO (13:59)
[2018-11-19] MEDS ORDERED: ACET325T38 PO (13:59)
[2018-11-19] MEDS ORDERED: TETR15DR74 OU (13:59)
--- NOTE | 2018-11-19 14:02 | NUR ---
UPDATED MED REC WITH ORDER SUMMARY REPORT FROM [facility]
--- NOTE | 2018-11-19 14:54 | Progress Note-Hospitalist ---
Progress Note Progress Notes/Assess & Plan Date Seen 11/19/18 Time Seen by Provider: 14:50 Assessment & Plan The patient is a 58-year-old white male with a lifelong history of cerebral palsy and intellectual impairment. He is both mute and deaf. He presented to the emergency room with an evident pneumonia. Family wishes to treat the pneumonia but no additional measures such as intubation or pressors. They believe he looks better today. He is presently afebrile and vital signs are stable. I changed his antibiotics this morning to reflect the possibility of aspiration. Chest x-ray shows no infiltrate right base. Physical exam: The patient is lying on his right side. He does not respond to my auscultation or speech. Lungs show shallow respirations. CV is regular. Extremities show contracture of the large joints. Impression: Right lower lobe pneumonia. Possible aspiration as etiology. Plan: Present measures. Observe for new Focused Exam Lactate Level 11/17/18 21:14: Lactic Acid Level 1.35 PAOLA HERNANDEZ MD November 19, 2018 14:54
[2018-11-19 15:39] VITALS: BP 97/59
[2018-11-19] MEDS: PIPERACILLIN/TAZOBACTAM (BULK) 4.5 GM in NS (IVPB) 100 ML IV SCH (18:15)
[2018-11-19 23:51] VITALS: BP 106/63
[2018-11-20] MEDS: 1/2 NS W/KCL 20 MEQ/L 1,000 ML IV SCH ×4 (00:20→17:16)
[2018-11-20] MEDS: PIPERACILLIN/TAZOBACTAM (BULK) 4.5 GM in NS (IVPB) 100 ML IV SCH ×3 (01:05→17:22)
[2018-11-20] MEDS: RT-ALBUTEROL/IPRATROPIUM 3 ML (DUONEB) VIAL INH SCH ×6 (02:48→22:22)
[2018-11-20 08:58] VITALS: BP 108/64
--- NOTE | 2018-11-20 09:27 | Diagnostic Imaging Report ---
EXAMINATION: Chest radiograph, portable AP view. DATE: November 20, 2018 at 0248 hours. INDICATION: 58-year-old male, sepsis. COMPARISON: November 19, 2018. FINDINGS: There is a left-sided central venous line with the tip overlying the upper SVC. Stable overall appearance of the cardiomediastinal silhouette. There is no identified pneumothorax. There is no large pleural effusion. There is multifocal airspace consolidation in the right mid and lower lung zones with a similar appearance to the comparison exam. IMPRESSION: Unchanged nonspecific airspace consolidation in the right mid to lower lung zones. This potentially may relate to pneumonia. Correlation clinically and followup to resolution is recommended. Dictated by: Dictated on workstation # [id number]
[2018-11-20] MEDS: ASPIRIN 81 MG CHEW (CHILDREN'S ASA) PO SCH (09:45)
--- NOTE | 2018-11-20 12:50 | NUR ---
CM/SS, initial review. Patient has current residency and care through [facility]. Host/Hostess contacted them about patient's previous level of functioning in comparison to current needs. Spoke with Residential Leader, Faraz Paniagua, cell [phone]. Faraz stated that patient has 24-7 total care and can definitely return to his residential status with them. He has his own wheelchair, [place] [facility] can transport patient when medically stable and released. When discharged, call Faraz on above cell number and/or main office [phone].
--- NOTE | 2018-11-20 14:25 | Progress Note-Hospitalist ---
Progress Note Progress Notes/Assess & Plan Date Seen 11/20/18 Time Seen by Provider: 14:23 Assessment & Plan The patient appears more alert today. His sister states that he had no apparent interest in food yesterday but ate well today. His eyes are open and he appears more interactive than yesterday. His color is good. His vital signs are good. Physical exam: Lungs are clear to auscultation. Respirations are relatively shallow. CV is regular. He has a glove on his right hand. His sister states that he has a habit of sucking on his fingers and this seems to deter him. Impression: Pneumonia. 2.multiple disabilities including cerebral palsy, vision , hearing, Plan: Continue IV fluids and antibiotics. Focused Exam Lactate Level 11/17/18 21:14: Lactic Acid Level 1.35 PAOLA HERNANDEZ MD November 20, 2018 14:25
[2018-11-20 16:00] VITALS: BP 117/70
[2018-11-21] VITALS: BP 110/70
[2018-11-21] MEDS: PIPERACILLIN/TAZOBACTAM (BULK) 4.5 GM in NS (IVPB) 100 ML IV SCH ×2 (00:11→09:16)
[2018-11-21] MEDS: 1/2 NS W/KCL 20 MEQ/L 1,000 ML IV SCH (00:43)
[2018-11-21] MEDS: RT-ALBUTEROL/IPRATROPIUM 3 ML (DUONEB) VIAL INH SCH ×3 (02:25→10:54)
[2018-11-21 07:56] VITALS: BP 93/58
[2018-11-21] MEDS: ASPIRIN 81 MG CHEW (CHILDREN'S ASA) PO SCH (09:15)
--- NOTE | 2018-11-21 10:16 | Progress Note-Hospitalist ---
Progress Note Progress Notes/Assess & Plan Date Seen 11/21/18 Time Seen by Provider: 10:08 Assessment & Plan The patient is sleeping rather soundly this morning. Vital signs are stable. The patient appears ready for transfer back to his previous living situation. The plan will be to have him take oral antibiotics by suspension for an additional week. Physical exam: Patient's color is good. He is sleeping soundly and breathing easily. Lungs are shallow but clear to auscultation CV is regular. Impression: 1.significant intellectual impairment. 2.cerebral palsy. 3.pneumonia, suspect aspiration based. Plan: Discharge to his previous living situation. Medications and routines as listed on the discharge sequence. PAOLA HERNANDEZ MD November 21, 2018 10:16
[2018-11-21] MEDS ORDERED: [UNRECOGNIZED DRUG - OTHER] (10:26)
[2018-11-21] MEDS ORDERED: AMOX600S41 PO (10:26)
--- NOTE | 2018-11-21 10:28 | Discharge Inst-Simple/Standard ---
Discharge Inst-Standard Discharge Medications New, Converted or Re-Newed RX: Transmitted to Pharmacy Patient Instructions/Follow Up Plan of Care/Instructions/FU: Medications as on the discharge sequence. Augmentin suspension to complete a 10 day course. Activity as Tolerated: Yes Discharge Diet: Other Diet (resume previous diet measures.) PAOLA HERNANDEZ MD November 21, 2018 10:28
[2018-11-21 10:38] VITALS: BP 93/58
--- NOTE | 2018-11-21 13:26 | Discharge Inst-Simple/Standard ---
Discharge Inst-Standard Patient Instructions/Follow Up Plan of Care/Instructions/FU: Hospice consultation Activity as Tolerated: Yes PAOLA HERNANDEZ MD November 21, 2018 13:26
--- NOTE | 2018-11-21 14:20 | NUR ---
CM/SS. Patient discharged today to return to [facility] as earlier noted. [facility] pre-arranged tentative transport with staff yesterday, Unit RN will finalize today. Sister/Guardian Ivelisse Ortiz was here. She has approached [facility] about hospice through [facility] for patient, Ivelisse had this service and agency for her parents. Ivelises has legal guardianship. We discussed the process for petitioning Court for DNR/DNI. Patient's guardianship was filed near [place], [place] and it is assumed this case remains open; however, Ivelisse indicates she has not filed conservatorship reporting for a few years. [facility] advised her to contact Court and confirm case remains open or if it was terminated due to inactivity from appointee re the required reporting. If Guardianship/Conservatorship remains current, Ivelisse will explore next steps re obtaining Order for DNR/DNI. [facility] explained process and requirement for Court involvement re DNR/DNI, answered Ivelisse's questions to her satisfaction.
== END 2018-11-21 15:02 | DRG 871 ==
LOC: EDUNIT# 21:07 → ER 21:08 → ICU 11-18 00:45 → 4TH 11-18 12:28
PROVIDERS: ADMIT Internal Medicine; ATTEND Internal Medicine
PROC: 02HV33Z Insertion of Infusion Device into Superior Vena Cava, Percutaneous Approach (ICD-10-PCS; principal; 2018-11-17)
DX: A41.9 Sepsis, unspecified organism (principal); J96.01 Acute respiratory failure with hypoxia; J69.0 Pneumonitis due to inhalation of food and vomit; J44.9 Chronic obstructive pulmonary disease, unspecified; G80.9 Cerebral palsy, unspecified; H91.3 Deaf nonspeaking, not elsewhere classified; F79 Unspecified intellectual disabilities; Z66 Do not resuscitate; E78.00 Pure hypercholesterolemia, unspecified; K21.9 Gastro-esophageal reflux disease without esophagitis; K59.09 Other constipation; R63.4 Abnormal weight loss
CPT/HCPCS: 36415; 51702; 71045; 80048; 80053; 81000; 82805; 83605; 83735; 84100; 85025; 85610; 85730; 87040; 87081; 87088; 87804; 94640; 94760; 96361; 96365; 96367; 96368; 99291